=== PATIENT | female | born 1990 | race Caucasian/White ===

== ENCOUNTER 2019-02-21 14:27 | Emergency (ER) | payer MEDICAID ==
--- NOTE | 2019-02-21 14:52 | EDM.PDOC ---
ED HPI GENERAL MEDICAL PROBLEM - General Chief Complaint: Gastrointestinal Problem Stated Complaint: FEVER,CHILLS AND NAUSEA Time Seen by Provider: 02/21/19 14:52 Source of Information: Reports: Patient History Limitations: Reports: No Limitations - History of Present Illness INITIAL COMMENTS - FREE TEXT/NARRATIVE: 28-year-old female presents to the ED with right lower quadrant abdominal pain, fever and chills., Extreme nausea. Reports that she woke around 0500 hrs. this morning to go to the bathroom and as soon as she started to walk she appreciated right lower quadrant abdominal pain. Since that time the pain is increased in intensity and is well localized to McBurney's point. It does not radiate anywhere. It is made worse by laughing walking and appreciated it worse with bumps in the road and driving to the hospital. Is extremely nauseated but has not yet vomited. Patient is being treated currently with a Medrol Dosepak for a bronchitis. Has finished antibiotics recently for bronchitis. Therefore her white blood cell count is likely to be elevated due to steroid effect. She did have some broth soup at noon today which has stayed down. No previous abdominal surgery. She's been 2. [facility] She denies any possibility of . had a vasectomy. Onset: Today Onset Date: 02/21/19 Onset Time: 05:00 Duration: Hour(s): Location: Reports: Abdomen (Right lower quadrant of the abdomen with no radiation.) Quality: Reports: Ache Severity: Moderate (Scribe is a deep ache made worse by coughing laughing or movement. 5 out of 10) Improves with: Reports: Rest Worsens with: Reports: Other, Movement Context: Denies: Activity, Exercise, Lifting, Sick Contact, Trauma, Other Associated Symptoms: Reports: Cough, Loss of Appetite, Malaise, Nausea/Vomiting , Other (She had 2 diarrhea stools yesterday which were waterish and brown. She felt this was secondary to spicy food she had eaten.). 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.) Right Lower Abdomen Pain Score (Numeric/FACES): 8 - Related Data Allergies Allergy/AdvReac Type Severity Reaction Status Date / Time latex Allergy Hives Verified 10/20/15 20:46 miconazole Allergy Swelling Verified 05/06/18 14:08 Penicillins Allergy Cannot Verified 05/06/18 14:08 Remember strawberry Allergy Hives Verified 10/20/15 20:46 Home Meds: Home Meds Ondansetron [Zofran ODT] 4 mg PO Q6H PRN #20 tab.dis 02/04/19 [Rx] Sucralfate [Carafate] 1 gm PO TIDAC PRN 02/21/19 [History] methylPREDNISolone [Methylprednisolone] 4 mg PO ASDIRECTED 02/21/19 [History] traMADol [Ultram] 50 mg PO Q6H PRN #10 tab 02/21/19 [Rx] Past Medical History HEENT History: Reports: Impaired Vision Other HEENT History: Wears glasses Gastrointestinal History: Reports: GERD, PUD Genitourinary History: Reports: Renal Calculus 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 Occasional nonproductive cough. Just finished a course bad about her bronchitis and is currently on Medrol Dosepak for the second time for persistent wheezing.) Cardiovascular: Denies: Chest Pain, Blood Pressure Problem, Claudication, Dyspnea on Exertion, Edema, Lightheadedness, Orthopnea Endocrine: Reports: No Symptoms GI/Abdominal: Reports: Abdominal Pain (Right lower quadrant abdominal pain well localized to McBurney's point.), Diarrhea (She had 2 loose brown watery stools yesterday. She felt this was due to something she had eaten a spicy food.), Nausea. Denies: Vomiting : Reports: No Symptoms Musculoskeletal: Reports: No Symptoms Skin: Reports: No Symptoms Neurological: Reports: No Symptoms Psychiatric: Reports: No Symptoms Hematologic/Lymphatic: Reports: No Symptoms Immunologic: Reports: No Symptoms ED EXAM, GI/ABD - Physical Exam Exam: See Below Exam Limited By: No Limitations General Appearance: Alert, WD/WN, No Apparent Distress, Other (She definitely is warm to palpation.) Eyes: Bilateral: Normal Appearance Throat/Mouth: Normal Inspection, Normal Lips, Normal Teeth, Normal Oropharynx Head: Atraumatic, Normocephalic Neck: Normal Inspection, Supple, Non-Tender, Full Range of Motion. No: Lymphadenopathy (L), Lymphadenopathy (R) Respiratory/Chest: No Respiratory Distress, Lungs Clear, Normal Breath Sounds, No Accessory Muscle Use. No: Wheezing Cardiovascular: Normal Peripheral Pulses, Regular Rate, Rhythm, No Edema, No Gallop, No Murmur, No Rub GI/Abdominal Exam: Guarding (Tender to the right lower quadrant of the abdomen over McBurney's point), Rebound ( mild guardingpositive rebound tenderness ), Tender, Abnormal Bowel Sounds (Very quiet sent bowel sounds in all 4 quadrants.) , Other (Mildly positive Rovsing sign). No: Rigid Back Exam: Normal Inspection, Full Range of Motion. No: CVA Tenderness (L), CVA Tenderness (R) Extremities: Normal Inspection, Normal Range of Motion, Non-Tender Neurological: Alert, Oriented, CN II-XII Intact, Normal Cognition Psychiatric: Normal Affect, Normal Mood Skin Exam: Warm, Dry, Intact, Normal Color, No Rash Course - Vital Signs Last Recorded V/S: Last Vital Signs Temp 36.7 C 02/21/19 14:49 Pulse 83 02/21/19 14:49 Resp 18 02/21/19 14:49 BP 118/81 02/21/19 14:49 Pulse Ox 99 02/21/19 14:49 - Orders/Labs/Meds Orders: Active Orders 24 hr Category Date Time Status Dextrose 5%-0.9% NaCl [Dextrose 5%-Normal Saline] 1,000 Med 02/21/19 15:15 Active ml IV ASDIRECTED Medication Orders Dextrose/Sodium Chloride (Dextrose 5%-Normal Saline) 1,000 mls @ 500 mls/hr IV ASDIRECTED MG Last Admin: 02/21/19 15:21 Dose: 500 mls/hr Labs: Laboratory Tests 02/21/19 02/21/19 02/21/19 Range/Units 15:22 15:22 15:22 WBC 18.19 H (3.98-10.04) K/mm3 RBC 4.45 (3.98-5.22) M/mm3 Hgb 13.5 (11.2-15.7) gm/L Hct 40.7 (34.1-44.9) % MCV 91.5 (79.4-94.8) fl MCH 30.3 (25.6-32.2) pg MCHC 33.2 (32.2-35.5) g/dl RDW Std Deviation 39.6 (36.4-46.3) fL Plt Count 399 H D (182-369) K/mm3 MPV 8.8 L (9.4-12.3) fl Neutrophils % (Manual) 89 H (40-60) % Band Neutrophils % 0 (0-10) % Lymphocytes % (Manual) 9 L (20-40) % Atypical Lymphs % 0 % Monocytes % (Manual) 1 L (2-10) % Eosinophils % (Manual) 0 L (0.7-5.8) % Basophils % (Manual) 1 (0.1-1.2) Platelet Estimate Adequate Plt Morphology Comment Normal RBC Morph Comment Normal Sodium 142 (136-145) mEq/L Potassium 3.9 (3.5-5.1) mEq/L Chloride 105 (98-107) mEq/L Carbon Dioxide 28 (21-32) mEq/L Anion Gap 12.9 (5-15) BUN 13 (7-18) mg/dL Creatinine 0.8 (0.55-1.02) mg/dL Est Cr Clr Drug Dosing 91.21 mL/min Estimated GFR (MDRD) > 60 (>60) mL/min BUN/Creatinine Ratio 16.3 (14-18) Glucose 103 (74-106) mg/dL Calcium 9.1 (8.5-10.1) mg/dL Total Bilirubin 0.4 (0.2-1.0) mg/dL AST 11 L (15-37) U/L ALT 23 (14-59) U/L Alkaline Phosphatase 59 (46-116) U/L C-Reactive Protein < 0.2 (<1.0) mg/dL Total Protein 7.8 (6.4-8.2) g/dl Albumin 4.1 (3.4-5.0) g/dl Globulin 3.7 gm/dL Albumin/Globulin Ratio 1.1 (1-2) Lipase 107 (73-393) U/L HCG, Quant < 1.0 mIU/mL Urine Color (Yellow) Urine Appearance (Clear) Urine pH (5.0-8.0) Ur Specific [place] (1.005-1.030) Urine Protein (Negative) Urine Glucose (UA) (Negative) Urine Ketones (Negative) Urine Occult Blood (Negative) Urine Nitrite (Negative) Urine Bilirubin (Negative) Urine Urobilinogen (0.2-1.0) Ur Leukocyte Esterase (Negative) Urine RBC (0-5) /hpf Urine WBC (0-5) /hpf Ur Squamous Epith Cells (0-5) /hpf Urine Bacteria (FEW) /hpf Urine Mucus (FEW) /hpf 02/21/19 Range/Units 16:25 WBC (3.98-10.04) K/mm3 RBC (3.98-5.22) M/mm3 Hgb (11.2-15.7) gm/L Hct (34.1-44.9) % MCV (79.4-94.8) fl MCH (25.6-32.2) pg MCHC (32.2-35.5) g/dl RDW Std Deviation (36.4-46.3) fL Plt Count (182-369) K/mm3 MPV (9.4-12.3) fl Neutrophils % (Manual) (40-60) % Band Neutrophils % (0-10) % Lymphocytes % (Manual) (20-40) % Atypical Lymphs % % Monocytes % (Manual) (2-10) % Eosinophils % (Manual) (0.7-5.8) % Basophils % (Manual) (0.1-1.2) Platelet Estimate Plt Morphology Comment RBC Morph Comment Sodium (136-145) mEq/L Potassium (3.5-5.1) mEq/L Chloride (98-107) mEq/L Carbon Dioxide (21-32) mEq/L Anion Gap (5-15) BUN (7-18) mg/dL Creatinine (0.55-1.02) mg/dL Est Cr Clr Drug Dosing mL/min Estimated GFR (MDRD) (>60) mL/min BUN/Creatinine Ratio (14-18) Glucose (74-106) mg/dL Calcium (8.5-10.1) mg/dL Total Bilirubin (0.2-1.0) mg/dL AST (15-37) U/L ALT (14-59) U/L Alkaline Phosphatase (46-116) U/L C-Reactive Protein (<1.0) mg/dL Total Protein (6.4-8.2) g/dl Albumin (3.4-5.0) g/dl Globulin gm/dL Albumin/Globulin Ratio (1-2) Lipase (73-393) U/L HCG, Quant mIU/mL Urine Color Yellow (Yellow) Urine Appearance Clear (Clear) Urine pH 6.5 (5.0-8.0) Ur Specific [place] 1.015 (1.005-1.030) Urine Protein Negative (Negative) Urine Glucose (UA) Negative (Negative) Urine Ketones Negative (Negative) Urine Occult Blood Negative (Negative) Urine Nitrite Negative (Negative) Urine Bilirubin Negative (Negative) Urine Urobilinogen 0.2 (0.2-1.0) Ur Leukocyte Esterase Negative (Negative) Urine RBC Not seen (0-5) /hpf Urine WBC 0-5 (0-5) /hpf Ur Squamous Epith Cells 10-20 H (0-5) /hpf Urine Bacteria Few (FEW) /hpf Urine Mucus Not seen (FEW) /hpf Meds: Medications Generic Name Dose Route Start Last Admin Trade Name Freq PRN Reason Stop Dose Admin Dextrose/Sodium Chloride 1,000 mls @ 500 mls/hr 02/21/19 15:15 02/21/19 15:21 Dextrose 5%-Normal Saline IV 500 mls/hr ASDIRECTED MG Administration Discontinued Medications Generic Name Dose Route Start Last Admin Trade Name Freq PRN Reason Stop Dose Admin Diatrizoate Meglum/Diatrizoate Sod 90 ml 02/21/19 15:23 02/21/19 16:36 Gastrografin 37% PO 02/21/19 15:24 90 ml ONETIME ONE Administration Hydromorphone HCl 0.5 mg 02/21/19 15:09 02/21/19 15:23 Dilaudid IVPUSH 02/21/19 15:10 0.5 mg ONETIME ONE Administration Iopamidol 100 ml 02/21/19 15:23 02/21/19 16:36 Isovue-300 (61%) IVPUSH 02/21/19 15:24 100 ml ONETIME ONE Administration Metoclopramide HCl 7.5 mg 02/21/19 15:09 02/21/19 15:22 Reglan IVPUSH 02/21/19 15:10 7.5 mg ONETIME ONE Administration Sodium Chloride 10 ml 02/21/19 15:23 02/21/19 15:24 Saline Flush FLUSH 02/21/19 15:24 10 ml ONETIME ONE Administration - Radiology Interpretation Free Text/Narrative:: 28-year-old female presents to the ED with right lower quadrant abdominal pain that she awoke with around 0500 hrs. this morning. This is predated by 2 loose watery diarrhea stopped real stools yesterday. Today she is appreciated severe nausea without vomiting. She did keep down a little bit of soup broth noon today. Pain is gradually intensifying in the right lower quadrant. It is made worse by movement coughing laughing and riding in a motor vehicle. Examination reveals that she is febrile. She is very tender to touch right lower quadrant of the abdomen with mild guarding and rebound tenderness. Concern is for appendicitis. Patient is currently on a Medrol Dosepak which will elevate her white blood cell count due to steroid effect. Her second course of steroids in the last 3 weeks. She has finished a course of antibiotics as well for bronchitis. Plan IV D5 normal saline at 500 mils per hour. Given Reglan 7.5 mg IV and Dilaudid 0.5 mg IV for pain relief. Routine labs to be obtained including a serum lipase of beta-hCG. The urinalysis when one becomes available. We will proceed with CT of the abdomen with oral and IV contrast to rule out appendicitis. - Re-Assessments/Exams Free Text/Narrative Re-Assessment/Exam: 02/21/19 16:25 White blood cell count is elevated 18.19 with 89% neutrophils no bands cells reported. Of note it may be elevated due to the Medrol Dosepak. Hemoglobin is 13.5 with a hematocrit of 40.7. Bili count is elevated at 399, 000. Sodium 142 with potassium of 3.9. Toward 105 with a bicarbonate 28. And a gap is 12.9. BUN is 13 with a creatinine of 0.8. GFR is greater than 60. Glucose is 103. Calcium is 9.1. Liver function is normal. C-reactive protein is less than 0.2. Lipase is 107. Total protein is 7.8 with an albumin fraction of 4.1. Urinalysis shows only a few epithelial cells but no signs of infection. 02/21/19 16:57 CT of the abdomen and pelvis has been performed with oral and IV contrast. Visualized portions of the lungs appear to be normal. Liver is homogeneous and normal. Gallbladder is normal. Spleen is normal pancreas is normal. Neither adrenal glands appear normal. Both kidneys are within normal limits showing no hydronephrosis or hydroureter. The appendix is visualized and is within normal limits with no steve-appendiceal infiltrate. Bladder is normal. Uterus is enlarged and she does have a right ovarian cyst which is somewhat septated. Several follicles are appreciated in the left ovary. No free fluid is evident. There is increased stool in the cecum and other portions of the colon. 02/21/19 17:26 patient reassured about the findings. Simple cyst in the right ovary which I don't believe is of any consequence. I believe most her pain is coming from stool in the cecum and right hemicolon. Her bowels are likely to work couple times after having oral contrast. I will place her MiraLAX powder 17 g or 1 scoop daily for the next 6 days to ensure bowel cleanse. Tramadol 50 mg 10 tablets were provided for pain relief if needed one every 6 hours when necessary. Follow-up if any further problems occur. Departure - Departure Time of Disposition: 17:18 Disposition: Home, Self-Care 01 Condition: Fair Clinical Impression: Constipation by delayed colonic transit, Right ovarian cyst Abdominal pain Qualifiers: Abdominal location: right lower quadrant Qualified Code(s): R10.31 - Right lower quadrant pain - Discharge Information *PRESCRIPTION DRUG MONITORING PROGRAM REVIEWED*: Not Applicable *COPY OF PRESCRIPTION DRUG MONITORING REPORT IN PATIENT SHANNAN: Not Applicable Prescriptions: traMADol [Ultram] 50 mg PO Q6H PRN #10 tab PRN Reason: Abdominal Pain Referrals: Radha Martinez PA-C [Primary Care Provider] - Forms: ED Department Discharge Additional Instructions: Evaluation the emergent today in regards to development of right lower quadrant abdominal pain since about 0500 hrs. this morning. Clinically also appear to have a low-grade fever.Ill recently with upper respiratory tract infection/ bronchitis. currently on second course of Medrol Dosepak. Pain was well localized to McBurney's point to right lower quadrant where the appendix lives. Therefore working diagnosis was possible appendicitis. However CT of the abdomen completed with IV and oral contrast reveals a normal-looking appendix was no sign of inflammation around it. The cecum or the lower part of the right colon is stool-filled almost up to the liver on the right side compatible with mild constipation. This may be acting as a stool plug and causing current pain syndrome. There is also a simple right-sided ovarian cyst which should resolve on its own over the next 6 weeks or so. It has not ruptured and has no blood within the cyst. No other abnormalities were appreciated on CT of the abdomen and pelvis. The bowels are likely going to move once or twice tonight secondary to the oral contrast you drank in the ED in preparation for the CT exam. I would suggest taking MiraLAX powder 17 g or 1 scoop daily for the next 6 days or so to ensure that the constipation is relieved completely. This I believe will relieve your abdominal pain. May use tramadol 50 mg every 6 hours as necessary for pain relief. Integument Medrol Dosepak as previously prescribed. Her inhaler as needed. - My Orders Last 24 Hours: My Active Orders 02/21/19 15:15 Dextrose 5%-0.9% NaCl [Dextrose 5%-Normal Saline] 1,000 ml IV ASDIRECTED - Assessment/Plan Last 24 Hours: My Active Orders 02/21/19 15:15 Dextrose 5%-0.9% NaCl [Dextrose 5%-Normal Saline] 1,000 ml IV ASDIRECTED
[2019-02-21 14:54] VITALS: BP 118/81
[2019-02-21] MEDS ORDERED: HYDROmorphone 0.5 MG/0.5 ML Syringe IVPUSH ONE (15:09)
[2019-02-21] MEDS ORDERED: Metoclopramide 10 MG/2 ML SDV IVPUSH ONE (15:09)
[2019-02-21] MEDS ORDERED: Dextrose 5%-0.9% NaCl 1,000 ML IV SCH (15:15)
[2019-02-21] MEDS ORDERED: Iopamidol 612 MG/ML 100 ML Bottle IVPUSH ONE (15:23)
[2019-02-21] MEDS ORDERED: Sodium Chloride 0.9% 10 ML Syringe FLUSH ONE (15:23)
[2019-02-21] MEDS ORDERED: Diatrizoate Meglumine/Diatrizoate Sodium 37% 120 ML Bottle PO ONE (15:23)
--- NOTE | 2019-02-21 17:00 | CT ---
CT abdomen and pelvis Technique: Multiple axial sections were obtained from slightly below the top the liver inferiorly through the pubic symphysis. Intravenous and oral contrast was utilized. Delayed images were also obtained through the bladder. Findings: Visualized lung bases show nothing acute. Liver contains no focal abnormality. Spleen appears within normal limits. Adrenal glands show no nodule. Pancreas is within normal limits. Gallbladder contains no calcified gallstones. Kidneys show symmetric contrast enhancement without hydronephrosis or mass. Aorta shows no aneurysm. No retroperitoneal adenopathy or mesenteric abnormalities are seen. Appendix is seen which is normal in size. No pelvic mass or adenopathy is seen. Delayed images shows contrast within the distal ureters and within the bladder. No free fluid or inflammatory change is appreciated within the abdomen or pelvis. Bone window settings were reviewed which appear within normal limits for the patient's age. Mild increased stool is noted throughout the colon. Impression: 1. Mild amount of increased stool within the colon. 2. CT study of the abdomen and pelvis otherwise appears within normal limits for the patient's age. Nothing acute is appreciated. Diagnostic code #2
== END 2019-02-21 17:50 | disposition home or self-care (01) ==
LOC: JD.ED 14:27
DX: K59.01 Slow transit constipation (principal); N83.201 Unspecified ovarian cyst, right side; Z91.040 Latex allergy status; Z88.0 Allergy status to penicillin; Z91.018 Allergy to other foods; Z88.8 Allergy status to other drugs, medicaments and biological substances
CPT/HCPCS: 36415; 74177; 80053; 81001; 83690; 84702; 85007; 85027; 86140; 96361; 96374; 96375; 99284; J1170; J2765; J7042; Q9963; Q9967

== ENCOUNTER 2019-10-27 15:13 | Inpatient (IN) | payer MEDICAID ==
[~2019-10-27 15:13] MED LIST: Bupivacaine 0.25% 10 ML SDV ONE
[2019-10-27] MEDS ORDERED: Sodium Chloride 0.9% 10 ML Syringe FLUSH PRN (16:58)
[2019-10-27] MEDS ORDERED: Nalbuphine 10 MG/ML Syringe IVPUSH PRN (16:58)
[2019-10-27] MEDS ORDERED: Ondansetron 4 MG/2 ML SDV IVPUSH PRN ×2 (16:58→17:03)
[2019-10-27] MEDS ORDERED: Oxytocin/Lactated Ringers 10 UNIT/1,000 ML BAG IV SCH ×2 (17:00→21:00)
[2019-10-27] MEDS ORDERED: ePHEDrine 50 MG/ML SDV IVPUSH PRN (17:03)
[2019-10-27] MEDS ORDERED: fentaNYL 100 MCG/2 ML SDV EPIDUR PRN (17:03)
--- NOTE | 2019-10-27 17:05 | PCM.LDHP ---
L&D History of Present Illness - General Date of Service: 10/27/19 Admit Problem/Dx: Patient Status Order with Admit Dx/Problem 10/27/19 16:02 Patient Status [ADT] Routine Admission Diagnosis/Problem Admission Diagnosis/Problem Source of Information: Patient History Limitations: Reports: No Limitations - History of Present Illness Introduction:: Patient is a 29 y/o at 38 1/7 wks who presents in early labor. Contractions on and off since 11 this AM. Not terribly uncomfortable. Doing well otherwise - Related Data Allergies/Adverse Reactions: Allergies Allergy/AdvReac Type Severity Reaction Status Date / Time latex Allergy Mild Hives Verified 10/27/19 16:01 miconazole Allergy Mild Hives Verified 10/27/19 16:01 Penicillins Allergy Mild Hives Verified 10/27/19 16:01 strawberry Allergy Mild Hives Verified 10/27/19 16:01 Home Medications: Home Meds No122/Iron/Folic Acid [ Multi Tablet] 1 each PO DAILY 08/29/19 [History] Past Medical History HEENT History: Reports: Impaired Vision Other HEENT History: Wears glasses Gastrointestinal History: Reports: GERD, PUD Genitourinary History: Reports: Renal Calculus 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): - Past Surgical History HEENT Surgical History: Reports: Oral Surgery GI Surgical History: Reports: Colonoscopy, EGD Social & Family History - Family History Family Medical History: Noncontributory - Tobacco Use Smoking Status *Q: Never Smoker - Caffeine Use Caffeine Use: Reports: Coffee - Alcohol Use Alcohol Use History: No - Recreational Drug Use Recreational Drug Use: No - Living Situation & Occupation Living situation: Reports: Single H&P Review of Systems - Review of Systems: Review Of Systems: See Below General: Reports: No Symptoms Pulmonary: Reports: No Symptoms Cardiovascular: Reports: No Symptoms Gastrointestinal: Reports: No Symptoms Genitourinary: Reports: No Symptoms Musculoskeletal: Reports: No Symptoms Skin: Reports: No Symptoms Psychiatric: Reports: No Symptoms Neurological: Reports: No Symptoms L&D Exam - Exam Exam: See Below - Vital Signs Vital Signs: Last Vital Signs Temp 37.1 C 10/27/19 15:27 Pulse 95 10/27/19 15:27 Resp 14 10/27/19 15:27 BP 124/72 10/27/19 15:27 Pulse Ox 100 10/27/19 15:27 Weight: 78.109 kg - OB Specific Contraction Intensity: Moderate Movement: Active Heart Tones: Present Heart Tones per Min: 135 Heart Rate (FHR) Variability: Moderate (6-25 bmp) Presentation: Vertex - Barron Score Barron Score Cervix Position: Midposition Barron Score Consistency: Soft Barron Score Effacement: >80% Barron Score Dilation: 3-4 cm (4-5) Barron Score Infant's Station: -2 Barron Score Total: 9 - Exam General: Alert, Oriented, Cooperative Lungs: Clear to Auscultation, Normal Respiratory Effort Cardiovascular: Regular Rate, Regular Rhythm GI/Abdominal Exam: Soft, Non-Tender Genitourinary: Normal external exam Extremities: Normal Inspection Skin: Warm, Dry, Intact - Problem List (1) 38 weeks gestation of SNOMED Code(s): 08968697 ICD Code: Z3A.38 - 38 WEEKS GESTATION OF Status: Acute Current Visit: Yes (2) Normal labor SNOMED Code(s): 59063260 ICD Code: O80 - ENCOUNTER FOR FULL-TERM UNCOMPLICATED DELIVERY; Z37.9 - OUTCOME OF DELIVERY, UNSPECIFIED Status: Acute Current Visit: No Problem List Initiated/Reviewed/Updated: Yes Orders Last 24hrs: Active Orders 24 hr Category Date Time Status Patient Status [ADT] Routine ADT 10/27/19 16:02 Active Activity as Tolerated [RC] PFP Care 10/27/19 16:58 Ordered Communication Order [RC] ASDIRECTED Care 10/27/19 16:58 Ordered Heart Tones [RC] ASDIRECTED Care 10/27/19 16:58 Ordered Non Stress Test [RC] PER UNIT ROUTINE Care 10/27/19 16:02 Active Non Stress Test [RC] PER UNIT ROUTINE Care 10/27/19 16:58 Ordered Notify Provider [RC] PFP Care 10/27/19 16:58 Ordered Notify Provider [RC] PRN Care 10/27/19 16:58 Ordered Peripheral IV Care [RC] . DIRECTED Care 10/27/19 16:58 Ordered Vital Signs [RC] PER UNIT ROUTINE Care 10/27/19 16:02 Active Vital Signs [RC] PER UNIT ROUTINE Care 10/27/19 16:58 Ordered Regular Diet [DIET] Diet 10/27/19 Dinner Ordered CBC W/O DIFF,HEMOGRAM [HEME] Stat Lab 10/27/19 16:58 Ordered RAPID PLASMA REAGIN,RPR [CHEM] Routine Lab 10/27/19 16:58 Ordered TYPE AND SCREEN [BBK] Stat Lab 10/27/19 16:58 Ordered Lactated Ringers [Ringers, Lactated] 1,000 ml Med 10/27/19 17:00 Ordered IV ASDIRECTED Nalbuphine [Nubain] Med 10/27/19 16:58 Ordered 10 mg IVPUSH Q2H PRN Ondansetron [Zofran] Med 10/27/19 16:58 Ordered 4 mg IVPUSH Q4H PRN Oxytocin/Lactated Ringers [Pitocin in LR 10 Units/1,000 Med 10/27/19 17:00 Ordered ML] 10 unit in 1,000 ml IV .CONTINUOUS Sodium Chloride 0.9% [Saline Flush] Med 10/27/19 16:58 Ordered 10 ml FLUSH ASDIRECTED PRN Electronic Heart Tones Ext w TOCO [WOMSER] Oth 10/27/19 16:58 Ordered Routine Electronic Heart Tones Internal [WOMSER] Per Unit Oth 10/27/19 16:58 Ordered Routine Peripheral IV Insertion Adult [OM.PC] Routine Oth 10/27/19 16:58 Ordered Resuscitation Status Routine Resus Stat 10/27/19 16:02 Ordered Medication Orders Lactated Ringer's (Ringers, Lactated) 1,000 mls @ 100 mls/hr IV ASDIRECTED MG Oxytocin/Lactated Ringer's (Pitocin In Lr 10 Units/1,000 Ml) 10 unit in 1,000 mls @ 500 mls/hr IV .CONTINUOUS MG Nalbuphine HCl (Nubain) 10 mg IVPUSH Q2H PRN PRN Reason: Pain Ondansetron HCl (Zofran) 4 mg IVPUSH Q4H PRN PRN Reason: Nausea/Vomiting Sodium Chloride (Saline Flush) 10 ml FLUSH ASDIRECTED PRN PRN Reason: Keep Vein Open Assessment/Plan Comment:: * Made change from 4 cm to 4-5 and more effaced * Labs to be done * GBS negative * Pain management per patient preference * Anticipate
[2019-10-27] MEDS ORDERED: Bupivacaine/fentaNYL/NS 100 ML Bag EPIDUR SCH (17:15)
--- NOTE | 2019-10-27 17:17 | PCM.PREANE ---
Preanesthetic Assessment - Procedure Proposed Procedure: SARAH - Anesthesia/Transfusion/Family Hx Anesthesia History: Prior Anesthesia Without Reaction Family History of Anesthesia Reaction: No Transfusion History: No Prior Transfusion(s) Intubation History: Unknown - Review of Systems General: No Symptoms Pulmonary: No Symptoms Cardiovascular: No Symptoms Gastrointestinal: No Symptoms, Constipation Neurological: No Symptoms Other: Reports: None - Physical Assessment NPO Status Date: 10/27/19 NPO Status Time: 12:00 Vital Signs: Last Vital Signs Temp 37.1 C 10/27/19 15:27 Pulse 95 10/27/19 15:27 Resp 14 10/27/19 15:27 BP 124/72 10/27/19 15:27 Pulse Ox 100 10/27/19 15:27 Height: 1.63 m Weight: 78.109 kg ASA Class: 2 Mental Status: Alert & Oriented x3 Airway Class: Mallampati = 2 Dentition: Reports: Normal Dentition, Caries Thyro-Mental Finger Breadths: 3 Mouth Opening Finger Breadths: 3 ROM/Head Extension: Full Lungs: Clear to Auscultation, Normal Respiratory Effort Cardiovascular: Regular Rate, Regular Rhythm, No Murmurs - Lab Values: Awaiting labs, will review when available, and if within acceptable ranges plan to proceed with epidural. - Allergies Allergies/Adverse Reactions: Allergies Allergy/AdvReac Type Severity Reaction Status Date / Time latex Allergy Mild Hives Verified 10/27/19 16:01 miconazole Allergy Mild Hives Verified 10/27/19 16:01 Penicillins Allergy Mild Hives Verified 10/27/19 16:01 strawberry Allergy Mild Hives Verified 10/27/19 16:01 - Anesthesia Plan Pre-Op Medication Ordered: None - Acknowledgements Anesthesia Type Planned: Epidural Pt an Appropriate Candidate for the Planned Anesthesia: Yes Alternatives and Risks of Anesthesia Discussed w Pt/Guardian: Yes Pt/Guardian Understands and Agrees with Anesthesia Plan: Yes PreAnesthesia Questionnaire HEENT History: Reports: Impaired Vision Other HEENT History: Wears glasses Gastrointestinal History: Reports: GERD, PUD Genitourinary History: Reports: Renal Calculus DYNAMICS AX SOLUTION ARCHITECT History: Reports: - Past Surgical History HEENT Surgical History: Reports: Oral Surgery GI Surgical History: Reports: Colonoscopy, EGD - SUBSTANCE USE Smoking Status *Q: Never Smoker Recreational Drug Use History: No - HOME MEDS Home Medications: Home Meds No122/Iron/Folic Acid [ Multi Tablet] 1 each PO DAILY 08/29/19 [History] - CURRENT (IN HOUSE) MEDS Current Meds: Current Medications Ephedrine Sulfate (Ephedrine Sulfate) 5 mg IVPUSH ASDIRECTED PRN PRN Reason: Hypotension Fentanyl (Sublimaze) 100 mcg EPIDUR Q3H PRN PRN Reason: Pain Fentanyl/Bupivacaine HCl (Fentanyl/Bupivacaine/Ns 2 Mcg-0.125% 100 Ml) 100 ml EPIDUR ASDIRECTED MG Lactated Ringer's (Ringers, Lactated) 1,000 mls @ 100 mls/hr IV ASDIRECTED MG Oxytocin/Lactated Ringer's (Pitocin In Lr 10 Units/1,000 Ml) 10 unit in 1,000 mls @ 500 mls/hr IV .CONTINUOUS MG Nalbuphine HCl (Nubain) 10 mg IVPUSH Q2H PRN PRN Reason: Pain Ondansetron HCl (Zofran) 4 mg IVPUSH Q4H PRN PRN Reason: Nausea/Vomiting Ondansetron HCl (Zofran) 4 mg IVPUSH ONETIME PRN PRN Reason: Nausea/Vomiting Sodium Chloride (Saline Flush) 10 ml FLUSH ASDIRECTED PRN PRN Reason: Keep Vein Open
[2019-10-27] MEDS: Lactated Ringers 1,000 ML IV SCH ×3 (17:46→20:14)
--- NOTE | 2019-10-27 18:42 | PCM.PNLD ---
Labor Progress Note - VS & Meds Vital Signs: Last Vital Signs Temp 37.1 C 10/27/19 16:02 Pulse 94 10/27/19 18:00 Resp 14 10/27/19 15:27 BP 122/67 10/27/19 18:00 Pulse Ox 100 10/27/19 17:30 Active Medications: Current Medications Ephedrine Sulfate (Ephedrine Sulfate) 5 mg IVPUSH ASDIRECTED PRN PRN Reason: Hypotension Fentanyl (Sublimaze) 100 mcg EPIDUR Q3H PRN PRN Reason: Pain Last Admin: 10/27/19 17:45 Dose: 100 mcg Fentanyl/Bupivacaine HCl (Fentanyl/Bupivacaine/Ns 2 Mcg-0.125% 100 Ml) 100 ml EPIDUR ASDIRECTED MG Last Admin: 10/27/19 17:45 Dose: 100 ml Lactated Ringer's (Ringers, Lactated) 1,000 mls @ 100 mls/hr IV ASDIRECTED MG Last Admin: 10/27/19 18:16 Dose: 100 mls/hr Oxytocin/Lactated Ringer's (Pitocin In Lr 10 Units/1,000 Ml) 10 unit in 1,000 mls @ 500 mls/hr IV .CONTINUOUS MG Nalbuphine HCl (Nubain) 10 mg IVPUSH Q2H PRN PRN Reason: Pain Ondansetron HCl (Zofran) 4 mg IVPUSH Q4H PRN PRN Reason: Nausea/Vomiting Ondansetron HCl (Zofran) 4 mg IVPUSH ONETIME PRN PRN Reason: Nausea/Vomiting Sodium Chloride (Saline Flush) 10 ml FLUSH ASDIRECTED PRN PRN Reason: Keep Vein Open - Uterine Contractions Uterine Monitoring Mode: External Cruger Contraction Intensity: Moderate - Monitoring Monitor Mode: External Ultrasound Heart Rate (FHR) Baseline: 120 Heart Rate (FHR) Variability: Moderate (6-25 bmp) Accelerations: Present, 15x15 Decelerations: None Strip Review: Category I - Vaginal Exam Dilation (cm): 6 Effacement (Percent): 75 Station: -1 Cervical Position: Midposition - Labor Progress (Free Text) Labor Progress: Doing well. Comfortable with epidural. AROM performed with release of clear fluid. Continue present management
--- NOTE | 2019-10-27 22:03 | PCM.DEL ---
L & D Note - General Info Date of Service: 10/27/19 - Delivery Note Labor: Augmented by ARM Delivery Outcome: Livebirth Delivery Method: Spontaneous Vaginal Delivery-Single Infant Delivery Mode: Spontaneous Presentation: Left Occiput Anterior (BRUNILDA) Nuchal Cord: None Anesthesia Type: Epidural Amniotic Fluid Description: Clear Episiotomy Type: None Laceration: None Placenta: Intact, Spontaneous Cord: 3 Vessels Estimated Blood Loss: 100 : Bulb Syringe, Stimulated, Warmed, [place] Used, Warmer Used Delivery Comments (Free Text/Narrative):: Patient found to be complete and began pushing. With maternal pushing effort head delivered from an MARGARITA presentation. No nuchal cord present. With gentle downward traction the shoulders and body delivered. placed on maternal abdomen. Cord clamped and cut. Cord blood obtained. Placenta allowed time to separate and expelled intact. Inspection of perineum showed no lacerations - General Info Date of Service: 10/27/19 - Patient Data Vitals - Most Recent: Last Vital Signs Temp 37.1 C 10/27/19 16:02 Pulse 94 10/27/19 18:00 Resp 14 10/27/19 15:27 BP 122/67 10/27/19 18:00 Pulse Ox 100 10/27/19 17:30 Weight - Most Recent: 78.109 kg Lab Results Last 24 Hours: Laboratory Results - last 24 hr 10/27/19 10/27/19 Range/Units 17:10 17:10 WBC 10.87 H (3.98-10.04) K/mm3 RBC 4.10 (3.98-5.22) M/mm3 Hgb 11.7 (11.2-15.7) gm/dl Hct 36.7 (34.1-44.9) % MCV 89.5 (79.4-94.8) fl MCH 28.5 (25.6-32.2) pg MCHC 31.9 L (32.2-35.5) g/dl RDW Std Deviation 41.3 (36.4-46.3) fL Plt Count 428 H (182-369) K/mm3 MPV 9.3 L (9.4-12.3) fl Blood Type A POSITIVE Gel Antibody Screen Negative Med Orders - Current: Current Medications Ephedrine Sulfate (Ephedrine Sulfate) 5 mg IVPUSH ASDIRECTED PRN PRN Reason: Hypotension Fentanyl (Sublimaze) 100 mcg EPIDUR Q3H PRN PRN Reason: Pain Last Admin: 10/27/19 17:45 Dose: 100 mcg Fentanyl/Bupivacaine HCl (Fentanyl/Bupivacaine/Ns 2 Mcg-0.125% 100 Ml) 100 ml EPIDUR ASDIRECTED MG Last Admin: 10/27/19 17:45 Dose: 100 ml Lactated Ringer's (Ringers, Lactated) 1,000 mls @ 100 mls/hr IV ASDIRECTED MG Last Admin: 10/27/19 20:14 Dose: 100 mls/hr Oxytocin/Lactated Ringer's (Pitocin In Lr 10 Units/1,000 Ml) 10 unit in 1,000 mls @ 500 mls/hr IV .CONTINUOUS MG Oxytocin/Lactated Ringer's (Pitocin In Lr 10 Units/1,000 Ml) 10 unit in 1,000 mls @ 12 mls/hr IV TITRATE MG; Protocol Last Titration: 10/27/19 21:27 Dose: 0 munits/min, 0 mls/hr Nalbuphine HCl (Nubain) 10 mg IVPUSH Q2H PRN PRN Reason: Pain Ondansetron HCl (Zofran) 4 mg IVPUSH Q4H PRN PRN Reason: Nausea/Vomiting Last Admin: 10/27/19 19:49 Dose: 4 mg Ondansetron HCl (Zofran) 4 mg IVPUSH ONETIME PRN PRN Reason: Nausea/Vomiting Sodium Chloride (Saline Flush) 10 ml FLUSH ASDIRECTED PRN PRN Reason: Keep Vein Open - Problem List & Annotations (1) 38 weeks gestation of SNOMED Code(s): 26538706 Code(s): Z3A.38 - 38 WEEKS GESTATION OF Status: Acute Current Visit: Yes (2) Normal labor SNOMED Code(s): 19523229 Code(s): O80 - ENCOUNTER FOR FULL-TERM UNCOMPLICATED DELIVERY; Z37.9 - OUTCOME OF DELIVERY, UNSPECIFIED Status: Acute Current Visit: No (3) Vaginal delivery SNOMED Code(s): 919026393 Code(s): O80 - ENCOUNTER FOR FULL-TERM UNCOMPLICATED DELIVERY Status: Acute Current Visit: No - Problem List Review Problem List Initiated/Reviewed/Updated: Yes - My Orders Last 24 Hours: My Active Orders 10/27/19 16:02 Vital Signs [RC] PER UNIT ROUTINE Resuscitation Status Routine 10/27/19 16:58 Activity as Tolerated [RC] PFP Communication Order [RC] ASDIRECTED Notify Provider [RC] PFP Notify Provider [RC] PRN Peripheral IV Care [RC] Q2HR Nalbuphine [Nubain] 10 mg IVPUSH Q2H PRN Ondansetron [Zofran] 4 mg IVPUSH Q4H PRN Sodium Chloride 0.9% [Saline Flush] 10 ml FLUSH ASDIRECTED PRN Electronic Heart Tones Ext w TOCO [WOMSER] Routine Electronic Heart Tones Internal [WOMSER] Per Unit Routine Peripheral IV Insertion Adult [OM.PC] Routine 10/27/19 17:00 Admission Status [Patient Status] [ADT] Routine Lactated Ringers [Ringers, Lactated] 1,000 ml IV ASDIRECTED Oxytocin/Lactated Ringers [Pitocin in LR 10 Units/1,000 ML] 10 unit in 1,000 ml IV .CONTINUOUS 10/27/19 17:10 RAPID PLASMA REAGIN,RPR [CHEM] Routine 10/27/19 21:00 Oxytocin/Lactated Ringers [Pitocin in LR 10 Units/1,000 ML] 10 unit in 1,000 ml IV TITRATE 10/27/19 Dinner Regular Diet [DIET] - Assessment Assessment:: PPD#0 - Plan Plan:: * Routine cares * Breast feeding * Discharge in 1-2 days
[2019-10-27] MEDS ORDERED: Docusate Sodium 100 MG Cap PO PRN (22:18)
[2019-10-27] MEDS ORDERED: Benzocaine/Menthol 20%-0.5% Spray 56 GM Canister TOP PRN (22:18)
[2019-10-27] MEDS ORDERED: Witch Hazel Medicated Pads 40/Jar TOP PRN (22:18)
[2019-10-27] MEDS: Ibuprofen 600 MG Tab PO PRN (22:31)
[2019-10-27] MEDS: Acetaminophen 325 MG Tab PO PRN (22:53)
--- NOTE | 2019-10-27 23:50 | PCM.SN.2 ---
- Free Text/Narrative Note: Anesthesia Note: Time Out: 0003 Start: 0010 Stop: 0025 Anesthesia called for patient c/o positional headache post delivery and post epidural catheter discontinuation. Upon assessment via anesthesia, patient continues to c/o positional headache when sitting high hilton's and with ambulation. Chart/Allergies reviewed. Consent signed for Autologous Blood Patch. Patient sat up for procedure. Sterile technique noted. Back cleansed with three betadine swabs. 17 gauge tuohy placed L3-L4 with TEMO noted via air @ 4cm. 20ml's of autologous blood injected via tuohy needle. Tuohy needle removed, bandaid placed, and patient instructed to lay flat for the remainder of the night. Procedure tolerated well by patient. Thank you! Vandana Puente CRNA
[2019-10-28] MEDS ORDERED: Lactated Ringers 1,000 ML IV SCH (00:45)
[2019-10-28] MEDS: Ibuprofen 600 MG Tab PO PRN ×3 (05:00→19:05)
--- NOTE | 2019-10-28 07:06 | PCM.PNPP ---
- General Info Date of Service: 10/28/19 Functional Status: Reports: Pain Controlled, Tolerating Diet, Ambulating, Urinating - Review of Systems General: Reports: No Symptoms Pulmonary: Reports: No Symptoms Cardiovascular: Reports: No Symptoms Gastrointestinal: Reports: No Symptoms Genitourinary: Reports: No Symptoms Musculoskeletal: Reports: No Symptoms Neurological: Reports: No Symptoms Psychiatric: Reports: No Symptoms - Patient Data Vital Signs - Most Recent: Last Vital Signs Temp 37.0 C 10/28/19 04:29 Pulse 81 10/28/19 04:29 Resp 15 10/28/19 04:29 BP 114/80 10/28/19 04:29 Pulse Ox 97 10/28/19 04:29 Weight - Most Recent: 78.109 kg I&O - Last 24 Hours: Intake & Output 10/27/19 10/28/19 10/28/19 22:59 06:59 14:59 Intake Total 5000 Balance 5000 Lab Results - Last 24 Hours: Laboratory Results - last 24 hr 10/27/19 10/27/19 10/27/19 Range/Units 17:10 17:10 17:10 WBC 10.87 H (3.98-10.04) K/mm3 RBC 4.10 (3.98-5.22) M/mm3 Hgb 11.7 (11.2-15.7) gm/dl Hct 36.7 (34.1-44.9) % MCV 89.5 (79.4-94.8) fl MCH 28.5 (25.6-32.2) pg MCHC 31.9 L (32.2-35.5) g/dl RDW Std Deviation 41.3 (36.4-46.3) fL Plt Count 428 H (182-369) K/mm3 MPV 9.3 L (9.4-12.3) fl RPR Non-reactive (NONREACTIVE) Blood Type A POSITIVE Gel Antibody Screen Negative Med Orders - Current: Current Medications Acetaminophen (Tylenol) 650 mg PO Q4H PRN PRN Reason: mild pain or fever Last Admin: 10/27/19 22:53 Dose: 650 mg Benzocaine/Menthol (Dermoplast Pain Relief [place]) 0 gm TOP ASDIRECTED PRN PRN Reason: Perineal Comfort Measure Docusate Sodium (Colace) 100 mg PO BID PRN PRN Reason: Constipation Lactated Ringer's (Ringers, Lactated) 1,000 mls @ 150 mls/hr IV ASDIRECTED MG Last Admin: 10/28/19 01:00 Dose: 150 mls/hr Ibuprofen (Motrin) 600 mg PO Q6H PRN PRN Reason: Mild pain or fever Last Admin: 10/28/19 05:00 Dose: 600 mg Witch [place] (Tucks) 1 pad TOP ASDIRECTED PRN PRN Reason: Pain Discontinued Medications Ephedrine Sulfate (Ephedrine Sulfate) 5 mg IVPUSH ASDIRECTED PRN PRN Reason: Hypotension Fentanyl (Sublimaze) 100 mcg EPIDUR Q3H PRN PRN Reason: Pain Last Admin: 10/27/19 17:45 Dose: 100 mcg Fentanyl/Bupivacaine HCl (Fentanyl/Bupivacaine/Ns 2 Mcg-0.125% 100 Ml) 100 ml EPIDUR ASDIRECTED MG Last Admin: 10/27/19 17:45 Dose: 100 ml Lactated Ringer's (Ringers, Lactated) 1,000 mls @ 100 mls/hr IV ASDIRECTED MG Last Admin: 10/27/19 20:14 Dose: 100 mls/hr Oxytocin/Lactated Ringer's (Pitocin In Lr 10 Units/1,000 Ml) 10 unit in 1,000 mls @ 500 mls/hr IV .CONTINUOUS MG Oxytocin/Lactated Ringer's (Pitocin In Lr 10 Units/1,000 Ml) 10 unit in 1,000 mls @ 12 mls/hr IV TITRATE MG; Protocol Last Titration: 10/27/19 22:55 Dose: 250 mls/hr Nalbuphine HCl (Nubain) 10 mg IVPUSH Q2H PRN PRN Reason: Pain Ondansetron HCl (Zofran) 4 mg IVPUSH Q4H PRN PRN Reason: Nausea/Vomiting Last Admin: 10/27/19 19:49 Dose: 4 mg Ondansetron HCl (Zofran) 4 mg IVPUSH ONETIME PRN PRN Reason: Nausea/Vomiting Sodium Chloride (Saline Flush) 10 ml FLUSH ASDIRECTED PRN PRN Reason: Keep Vein Open - Interaction Disposition, : [place] in Room with Family Infant Interaction: Holding Infant Feeding: Breastfed Infant; Nursed Well Support Person: - Recovery Exam Fundal Tone: Firm Fundal Level: At Umbilicus Fundal Placement: Midline Lochia Amount: Small Lochia Color: Rubra/Red Perineum Description: Intact, Minimal Bruising/Swelling Episiotomy/Laceration: None Bladder Status: Nonpalpable, Voiding Urinary Elimination: Voided - Exam General: Alert, Oriented, Cooperative GI/Abdominal Exam: Soft, Non-Tender Extremities: Normal Inspection Skin: Warm, Dry, Intact - Problem List & Annotations (1) 38 weeks gestation of SNOMED Code(s): 75154816 Code(s): Z3A.38 - 38 WEEKS GESTATION OF Status: Acute Current Visit: Yes (2) Normal labor SNOMED Code(s): 92689441 Code(s): O80 - ENCOUNTER FOR FULL-TERM UNCOMPLICATED DELIVERY; Z37.9 - OUTCOME OF DELIVERY, UNSPECIFIED Status: Acute Current Visit: No (3) Vaginal delivery SNOMED Code(s): 459862193 Code(s): O80 - ENCOUNTER FOR FULL-TERM UNCOMPLICATED DELIVERY Status: Acute Current Visit: No - Problem List Review Problem List Initiated/Reviewed/Updated: Yes - My Orders Last 24 Hours: My Active Orders 10/27/19 16:02 Resuscitation Status Routine 10/27/19 22:18 Activity as Tolerated [RC] PER UNIT ROUTINE Vital Signs [RC] 09,15,21,03 Acetaminophen [Tylenol] 650 mg PO Q4H PRN Benzocaine/Menthol [Dermoplast Pain Relief [place]] See Dose Instructions TOP ASDIRECTED PRN Docusate Sodium [Colace] 100 mg PO BID PRN Ibuprofen [Motrin] 600 mg PO Q6H PRN witch Sapphire [Tucks] 1 pad TOP ASDIRECTED PRN Assess Lochia [WOMSER] Per Unit Routine Assess Uterine Involution [WOMSER] Per Unit Routine Breast Pump [WOMSER] Per Unit Routine Heat Therapy [OM.PC] PRN Ice Therapy [OM.PC] Per Unit Routine Perineal Care [OM.PC] Per Unit Routine Peripheral IV Discontinue [OM.PC] Routine Sitz Bath [OM.PC] Per Unit Routine 10/27/19 Breakfast Regular Diet [DIET] 10/28/19 22:18 Heat Therapy [OM.PC] PRN - Assessment Assessment:: PPD#1 - Plan Plan:: * Routine cares * Breast feeding * Discharge today
--- NOTE | 2019-10-28 07:08 | PCM.DCSUM1 ---
Discharge Summary - Discharge Data Discharge Date: 10/28/19 Discharge Disposition: Home, Self-Care 01 Condition: Good - Referral to Home Health Primary Care Physician: Saskia Olson MD - Discharge Diagnosis/Problem(s) (1) 38 weeks gestation of SNOMED Code(s): 63283332 ICD Code: Z3A.38 - 38 WEEKS GESTATION OF Status: Acute Current Visit: Yes (2) Normal labor SNOMED Code(s): 65816233 ICD Code: O80 - ENCOUNTER FOR FULL-TERM UNCOMPLICATED DELIVERY; Z37.9 - OUTCOME OF DELIVERY, UNSPECIFIED Status: Acute Current Visit: No (3) Vaginal delivery SNOMED Code(s): 579483642 ICD Code: O80 - ENCOUNTER FOR FULL-TERM UNCOMPLICATED DELIVERY Status: Acute Current Visit: No - Patient Summary/Data Complications: None Consults: None Recommended Follow-up Testing/Procedures: Follow up in 3 weeks for check - can be telehealth Hospital Course: Patient is a29 y/o at 38 1/7 wks who presented in early labor. Progressed well to complete dilation. Underwent uncomplicated . See delivery note. did well and was discharged home on PPD#1 - Patient Instructions Diet: Regular Diet as Tolerated Activity: As Tolerated Activity, Other: Pelvic Rest for 6 weeks Driving: May Drive Today Showering/Bathing: May Shower Showering/Bathing, Other: May bathe Notify Provider of: Fever, Increased Pain, Swelling and Redness, Drainage, Nausea and/or Vomiting - Discharge Plan *PRESCRIPTION DRUG MONITORING PROGRAM REVIEWED*: No *COPY OF PRESCRIPTION DRUG MONITORING REPORT IN PATIENT SHANNAN: No Home Medications: Home Meds No122/Iron/Folic Acid [ Multi Tablet] 1 each PO DAILY 08/29/19 [History] Docusate Sodium [Colace] 100 mg PO BID PRN cap 10/28/19 [Rx] Ibuprofen [Motrin] 600 mg PO Q6H PRN tablet 10/28/19 [Rx] Referrals: Saskia Olson MD [Primary Care Provider] - (3 weeks for check - can be telehealth ) - Discharge Summary/Plan Comment DC Time >30 min.: No - Patient Data Vitals - Most Recent: Last Vital Signs Temp 37.0 C 10/28/19 04:29 Pulse 81 10/28/19 04:29 Resp 15 10/28/19 04:29 BP 114/80 10/28/19 04:29 Pulse Ox 97 10/28/19 04:29 Weight - Most Recent: 78.109 kg I&O - Last 24 hours: Intake & Output 10/27/19 10/28/19 10/28/19 22:59 06:59 14:59 Intake Total 5000 Balance 5000 Lab Results - Last 24 hrs: Laboratory Results - last 24 hr 10/27/19 10/27/19 10/27/19 Range/Units 17:10 17:10 17:10 WBC 10.87 H (3.98-10.04) K/mm3 RBC 4.10 (3.98-5.22) M/mm3 Hgb 11.7 (11.2-15.7) gm/dl Hct 36.7 (34.1-44.9) % MCV 89.5 (79.4-94.8) fl MCH 28.5 (25.6-32.2) pg MCHC 31.9 L (32.2-35.5) g/dl RDW Std Deviation 41.3 (36.4-46.3) fL Plt Count 428 H (182-369) K/mm3 MPV 9.3 L (9.4-12.3) fl RPR Non-reactive (NONREACTIVE) Blood Type A POSITIVE Gel Antibody Screen Negative Med Orders - Current: Current Medications Acetaminophen (Tylenol) 650 mg PO Q4H PRN PRN Reason: mild pain or fever Last Admin: 10/27/19 22:53 Dose: 650 mg Benzocaine/Menthol (Dermoplast Pain Relief [place]) 0 gm TOP ASDIRECTED PRN PRN Reason: Perineal Comfort Measure Docusate Sodium (Colace) 100 mg PO BID PRN PRN Reason: Constipation Lactated Ringer's (Ringers, Lactated) 1,000 mls @ 150 mls/hr IV ASDIRECTED MG Last Admin: 10/28/19 01:00 Dose: 150 mls/hr Ibuprofen (Motrin) 600 mg PO Q6H PRN PRN Reason: Mild pain or fever Last Admin: 10/28/19 05:00 Dose: 600 mg Witch [place] (Tucks) 1 pad TOP ASDIRECTED PRN PRN Reason: Pain Discontinued Medications Ephedrine Sulfate (Ephedrine Sulfate) 5 mg IVPUSH ASDIRECTED PRN PRN Reason: Hypotension Fentanyl (Sublimaze) 100 mcg EPIDUR Q3H PRN PRN Reason: Pain Last Admin: 10/27/19 17:45 Dose: 100 mcg Fentanyl/Bupivacaine HCl (Fentanyl/Bupivacaine/Ns 2 Mcg-0.125% 100 Ml) 100 ml EPIDUR ASDIRECTED MG Last Admin: 10/27/19 17:45 Dose: 100 ml Lactated Ringer's (Ringers, Lactated) 1,000 mls @ 100 mls/hr IV ASDIRECTED MG Last Admin: 10/27/19 20:14 Dose: 100 mls/hr Oxytocin/Lactated Ringer's (Pitocin In Lr 10 Units/1,000 Ml) 10 unit in 1,000 mls @ 500 mls/hr IV .CONTINUOUS MG Oxytocin/Lactated Ringer's (Pitocin In Lr 10 Units/1,000 Ml) 10 unit in 1,000 mls @ 12 mls/hr IV TITRATE MG; Protocol Last Titration: 10/27/19 22:55 Dose: 250 mls/hr Nalbuphine HCl (Nubain) 10 mg IVPUSH Q2H PRN PRN Reason: Pain Ondansetron HCl (Zofran) 4 mg IVPUSH Q4H PRN PRN Reason: Nausea/Vomiting Last Admin: 10/27/19 19:49 Dose: 4 mg Ondansetron HCl (Zofran) 4 mg IVPUSH ONETIME PRN PRN Reason: Nausea/Vomiting Sodium Chloride (Saline Flush) 10 ml FLUSH ASDIRECTED PRN PRN Reason: Keep Vein Open
[2019-10-28] MEDS: Acetaminophen 325 MG Tab PO PRN ×3 (07:58→21:25)
--- NOTE | 2019-10-28 08:53 | PCM48HPAN ---
Post Anesthesia Note - EVALUATION WITHIN 48HRS OF ANESTHETIC Vital Signs in Normal Range: Yes Patient Participated in Evaluation: Yes Respiratory Function Stable: Yes Airway Patent: Yes Cardiovascular Function Stable: Yes Hydration Status Stable: Yes Pain Control Satisfactory: Yes Nausea and Vomiting Control Satisfactory: Yes Mental Status Recovered: Yes Vital Signs: Last Vital Signs Temp 37.0 C 10/28/19 04:29 Pulse 81 10/28/19 04:29 Resp 15 10/28/19 04:29 BP 114/80 10/28/19 04:29 Pulse Ox 97 10/28/19 04:29 - COMMENTS/OBSERVATIONS Free Text/Narrative:: Patient awake and comfortable at the bedside. Patient denies any c/o headaches at this time. Patient encouraged to remain inactive for the next few days and rest. Patient educated on possibility of blood clot breaking loose if her activity level is too intense. Patient demonstrates understanding and is doing well. Thank you! Vandana BANSAL
[2019-10-28 22:25] VITALS: BP 115/64; PULSE 69
== END 2019-10-28 22:50 | disposition home or self-care (01) | DRG 807 ==
LOC: JD.OBCHECK 15:13 → JD.OB 15:19 → UNDOADMOB 17:00 → JD.OBCHECK 19:19 → OBSVTOIN 21:21 → INTOOBSV 21:21 → JD.OB 21:21 → OBSVTOIN 21:51 → JD.OB 21:51
PROVIDERS: ADMIT Obstetrics & Gynecology; ATTEND Obstetrics & Gynecology
PROC: 10E0XZZ Delivery of Products of Conception, External Approach (ICD-10-PCS; principal; 2019-10-27)
PROC: 10907ZC Drainage of Amniotic Fluid, Therapeutic from Products of Conception, Via Natural or Artificial Opening (ICD-10-PCS; 2019-10-27)
PROC: 3E0R3BZ Introduction of Anesthetic Agent into Spinal Canal, Percutaneous Approach (ICD-10-PCS; 2019-10-27)
DX: O80 Encounter for full-term uncomplicated delivery (principal); Z37.0 Single live birth; Z3A.38 38 weeks gestation of pregnancy; Z88.0 Allergy status to penicillin; Z91.040 Latex allergy status; Z91.018 Allergy to other foods; Z88.8 Allergy status to other drugs, medicaments and biological substances
CPT/HCPCS: 36415; 51702; 59025; 59409; 85027; 86592; 86850; 86900; 86901; A9270-GY; J2405; J2590; J3010; J3490; J7120

== ENCOUNTER 2019-10-30 17:16 | Emergency (ER) | payer MEDICAID ==
[2019-10-30 17:35] VITALS: PULSE 74
--- NOTE | 2019-10-30 17:50 | EDM.PDOC ---
ED HPI GENERAL MEDICAL PROBLEM - General Chief Complaint: Headache Stated Complaint: BLOOD PATCH, HEADACHE, POST LABOR Time Seen by Provider: 10/30/19 17:27 Source of Information: Reports: Patient History Limitations: Reports: No Limitations - History of Present Illness INITIAL COMMENTS - FREE TEXT/NARRATIVE: Patient is a 29-year-old female who presents to the emergency department with complaints of headache since Wednesday. Patient gave via normal vaginal delivery on October 26. She had epidural anesthesia with this. Shortly after the epidural was discontinued, she developed a spinal headache and had a blood patch completed. She states that this intervention relieved her symptoms until she returned home on October 27. She states since that time she has had a significant positional headache. Pain is tolerable when laying flat, however when she stands up she experiences a severe frontal headache at times to the point where she feels like she may pass out. She denies any back pain with a return of symptoms, however stated initially she did have back pain with it. She has been using ibuprofen and caffeine at home with no relief. Headache Pain Score (Numeric/FACES): 6 - Related Data Allergies Allergy/AdvReac Type Severity Reaction Status Date / Time latex Allergy Mild Hives Verified 10/30/19 17:35 miconazole Allergy Mild Hives Verified 10/30/19 17:35 Penicillins Allergy Mild Hives Verified 10/30/19 17:35 strawberry Allergy Mild Hives Verified 10/30/19 17:35 Home Meds: Home Meds Docusate Sodium [Colace] 100 mg PO BID PRN cap 10/28/19 [Rx] Ibuprofen [Motrin] 600 mg PO Q6H PRN tablet 10/28/19 [Rx] Past Medical History HEENT History: Reports: Impaired Vision Other HEENT History: Wears glasses Gastrointestinal History: Reports: GERD, PUD Genitourinary History: Reports: Renal Calculus 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 - Physical Exam Exam: See Below Exam Limited By: No Limitations General Appearance: Alert, WD/WN, No Apparent Distress Head Exam: Atraumatic, Normocephalic Respiratory/Chest: No Respiratory Distress, Lungs Clear, Normal Breath Sounds, No Accessory Muscle Use, Chest Non-Tender Cardiovascular: Normal Peripheral Pulses, Regular Rate, Rhythm, No Edema, No Gallop, No JVD, No Murmur, No Rub Neuro Exam (Abbreviated): Alert, Oriented, CN II-XII Intact, Normal Cognition, Normal Gait, Normal Reflexes, No Motor/Sensory Deficits Psychiatric: Normal Affect, Normal Mood Skin Exam: Warm, Dry, Intact, Normal Color, No Rash Course - Vital Signs Last Recorded V/S: Last Vital Signs Temp 97.9 F 10/30/19 17:29 Pulse 74 10/30/19 17:29 Resp 16 10/30/19 17:29 BP 116/72 10/30/19 21:20 Pulse Ox 98 10/30/19 17:29 - Orders/Labs/Meds Meds: Medications Discontinued Medications Generic Name Dose Route Start Last Admin Trade Name Kunal PRN Reason Stop Dose Admin Lactated Ringer's Confirm 10/30/19 18:16 10/30/19 18:21 Ringers, Lactated Administered 10/30/19 18:17 Not Given Dose 1,000 mls @ as directed .ROUTE .STK-MED ONE Lactated Ringer's 1,000 mls @ 125 mls/hr 10/30/19 18:30 10/30/19 19:23 Ringers, Lactated IV 999 mls/hr ASDIRECTED MG Infusion Sodium Chloride 10 ml 10/30/19 18:18 10/30/19 19:50 Saline Flush FLUSH 10 ml ASDIRECTED PRN Administration Keep Vein Open - Re-Assessments/Exams Free Text/Narrative Re-Assessment/Exam: Patient's history and exam are consistent with that of a spinal headache. I contacted ROLF on-call, Leeann Patiño, to consult and possibly repeat the blood patch. She will review the patient's chart and be in to see the patient. 10/30/19 18:20 ROLF Lakhani, was here to see the patient. She will repeat the blood patch. Patient requested to be able to breast-feed her baby prior to the procedure as she will have to lay flat for 1 to 2 hours after. Patient requested that she go out to the vehicle to feed the baby as she is hesitant to bring him into the ER and expose him to the germs. She states that she has not had any syncopal episodes and feels that she will do okay getting to the car, however, she is aware that it will worsen her headache. We allowed her to breast-feed the and then proceed with the blood patch. 10/30/19 19:15 Blood patch was completed at 1905. Patient will lay flat on her back until 2004. She may roll from side to side but not get up and walk until 2104. After that time we will have her ambulate and if she is doing well she will be discharged home. 10/30/19 20:05 Patient has been lying supine until this time. She states that her headache is feeling much better. We will allow her to start turning from side to side. Departure - Departure Time of Disposition: 19:10 Disposition: Home, Self-Care 01 Condition: Good Clinical Impression: Post-dural puncture headache - Discharge Information *PRESCRIPTION DRUG MONITORING PROGRAM REVIEWED*: No *COPY OF PRESCRIPTION DRUG MONITORING REPORT IN PATIENT SHANNAN: No Instructions: Epidural Blood Patch for Spinal Headache, Care After Referrals: Saskia Olson MD [Primary Care Provider] - Forms: ED Department Discharge Additional Instructions: You were seen in the emergency department today for a headache related to your epidural. A blood patch was completed. You should rest, avoid strenuous activity or lifting for at least the next 3 days to prevent dislodgment of the blood clot. You may continue to use Tylenol and ibuprofen as needed for pain or discomfort. If your symptoms should return or you experience any new or worsening symptoms of concern, please do not hesitate to return to the emergency department. Sepsis Event Note - Evaluation Sepsis Screening Result: No Definite Risk - Focused Exam Date Exam was Performed: 11/03/19 Time Exam was Performed: 22:28
[2019-10-30] MEDS ORDERED: Lactated Ringers 1,000 ML ONE (18:16)
[2019-10-30] MEDS ORDERED: Sodium Chloride 0.9% 10 ML Syringe FLUSH PRN (18:18)
[2019-10-30] MEDS ORDERED: Lactated Ringers 1,000 ML IV SCH (18:30)
--- NOTE | 2019-10-30 19:45 | PCM.SN.2 ---
- Free Text/Narrative Note: Anesthesia Note Procedure: Epidural Blood Patch Time: Start: 1832 Stop: 1904 Called to the ER to evaluate Lupe for a post dural puncture headache. She received and epidural on 10/27/2019 insertion was documented without difficulty and no fluid was noted during placement. She was experiencing a positional headache and received a blood patch on 10/28/2019. She did have relief for several hours and then the headache returned and has been intensifying. Currently she has blurry vision when she sits up, severe headache, stiff neck/ shoulders and back. She has been resting as she is able and drinking Coke and water. She has also tried alternating Tylenol and Motrin. She is agreeable to repeating the epidural blood patch at this time. She understands the risks and would like to proceed. Consent has been obtained. Lupe was assisted into a sitting position, sterile precautions observed throughout the procedure. The site was prepped with 3 Betadine swab sticks and allowed to dry. The transparent drape was place, lidocaine 1% to anesthetize the skin, 17 gauge Tuohy needle was advanced with air to TEMO at 4 cm, negative aspiration of fluid, 20 ml of sterile autologous blood was obtained from her left antecubital vein, blood was injected with ease through the Tuohy needle, Lupe noted pressure but was able to tolerated injection of 20 mls of blood. The Tuohy needle was removed. Lupe was repositioned supine and noted she was "feeling much better". She is able to move her legs bilaterally, denies numbness /tingling to her legs/feet, and denies headache at this time. I have asked for Lupe to remain supine for one hour and minimal side to side turning for the second hour. She is understanding of the time requirements and also will try and rest once she returns home. I have encouraged her to continue to increase her oral intake of fluids and use the Tylenol and Motrin as needed. Lupe Patiño CRNA
[2019-10-30 21:21] VITALS: BP 116/72
== END 2019-10-30 21:21 | disposition home or self-care (01) ==
LOC: JD.ED 17:16
DX: G97.1 Other reaction to spinal and lumbar puncture (principal); Z91.040 Latex allergy status; Z88.8 Allergy status to other drugs, medicaments and biological substances; Z88.0 Allergy status to penicillin; Z91.018 Allergy to other foods
CPT/HCPCS: 62273; 99283; 99284; J7120

== ENCOUNTER 2020-12-26 19:07 | Emergency (ER) | payer MEDICAID ==
[2020-12-26 19:19] VITALS: BP 131/100; PULSE 84
--- NOTE | 2020-12-26 19:38 | EDM.PDOC ---
ED HPI GENERAL MEDICAL PROBLEM - General Chief Complaint: Back Pain or Injury Stated Complaint: POSS KIDNEY STONE SENT BY [facility] Time Seen by Provider: 12/26/20 19:11 Source of Information: Reports: Patient, RN Notes Reviewed History Limitations: Reports: No Limitations - History of Present Illness INITIAL COMMENTS - FREE TEXT/NARRATIVE: Patient is a 30-year-old female who states she had back pain on the left side started yesterday evening and is gotten worse today. At its most intense pain is 5 out of 10 and is achy in nature. She denies any radiation of the pain. She feels pain is more intense when she moves. She has had some hematuria but denies any dysuria or vaginal discharge. She denies any fever chills nausea vomiting or significant diarrhea. He has had similar pain in the past 8 years ago when she did have a kidney stone. Patient was seen at our urgent care and sent to the ED after having a negative pelvic exam negative and work- up but was unable to get a CT scan for kidney stone and therefore sent to us. Duration: Day(s): (Last night.), Colic, Waxing/Waning Location: Reports: Back Quality: Reports: Ache Severity: Moderate Improves with: Reports: None Worsens with: Reports: Movement Associated Symptoms: Reports: No Other Symptoms. Denies: Fever/Chills, Nausea/Vomiting Left Flank Pain Score (Numeric/FACES): 5 - Related Data Allergies Allergy/AdvReac Type Severity Reaction Status Date / Time latex Allergy Severe Hives Verified 12/26/20 19:19 miconazole Allergy Severe Hives Verified 12/26/20 19:19 Penicillins Allergy Severe Hives Verified 12/26/20 19:19 strawberry Allergy Severe Hives Verified 12/26/20 19:19 Home Meds: Home Meds Docusate Sodium [Colace] 100 mg PO BID PRN cap 10/28/19 [Rx] Ibuprofen [Motrin] 600 mg PO Q6H PRN tablet 10/28/19 [Rx] Hydrocodone/Acetaminophen [Hydrocodone-Acetamin 5-325 mg] 1 each PO Q6HR PRN #14 tab 12/26/20 [Rx] Ondansetron [Zofran ODT] 4 mg PO Q6H PRN #7 tab.dis 12/26/20 [Rx] Past Medical History HEENT History: Reports: Impaired Vision Other HEENT History: Wears glasses Gastrointestinal History: Reports: GERD, PUD Genitourinary History: Reports: Renal Calculus 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: - Past Surgical History HEENT Surgical History: Reports: Oral Surgery Other HEENT Surgeries/Procedures: [place] Tooth extraction GI Surgical History: Reports: Colonoscopy, EGD Social & Family History - Family History Family Medical History: No Pertinent Family History - Tobacco Use Tobacco Use Status *Q: Never Tobacco User - Caffeine Use Caffeine Use: Reports: Coffee, Soda - Recreational Drug Use Recreational Drug Use: No - Living Situation & Occupation Living situation: Reports: Single ED ROS GENERAL - Review of Systems Review Of Systems: Comprehensive ROS is negative, except as noted in HPI. GI/Abdominal: Reports: No Symptoms : Reports: Flank Pain, Hematuria, Pain. Denies: Discharge, Dysuria, Frequency, Urgency, Urinary Retention ED EXAM,LOWER BACK PAIN/INJURY - Physical Exam Exam: See Below Exam Limited By: No Limitations General Appearance: Alert, No Apparent Distress Head: Atraumatic Neck: Normal Inspection, Supple Respiratory/Chest: No Respiratory Distress, Lungs Clear, Normal Breath Sounds Cardiovascular: Regular Rate, Rhythm GI/Abdominal: Normal Bowel Sounds, Soft, Non-Tender Back Exam: Normal Inspection, Full Range of Motion, CVA Tenderness (L) Neurological: Alert, Normal Mood/Affect Psychiatric: Normal Affect Skin Exam: Warm, Dry, Normal Color Lymphatic: No Adenopathy Course - Vital Signs Text/Narrative:: Patient's medical record from the clinic shows that she did have some blood in her urine. Patient CT scan done here does show she has a small nonobstructing calculus of the left kidney no ureteral dilatation or ureteral stone is seen. Patient is feeling better at this time she will be given prescription for [place] and Zofran ODT. She will be sent home with a urine strainer a container to collect the stone for follow-up with urologist. She is instructed to return to ER if having fever chills vomiting or worse pain. Last Recorded V/S: Last Vital Signs Temp 98.4 F 12/26/20 19:16 Pulse 84 12/26/20 19:16 Resp 16 12/26/20 19:16 BP 131/100 H 12/26/20 19:16 Pulse Ox - Radiology Interpretation Free Text/Narrative:: See above. Departure - Departure Time of Disposition: 20:33 Disposition: Home, Self-Care 01 Condition: Good Clinical Impression: Renal colic on left side - Discharge Information *COPY OF PRESCRIPTION DRUG MONITORING REPORT IN PATIENT SHANNAN: No Prescriptions: Hydrocodone/Acetaminophen [Hydrocodone-Acetamin 5-325 mg] 1 each PO Q6HR PRN #14 tab PRN Reason: Pain Ondansetron [Zofran ODT] 4 mg PO Q6H PRN #7 tab.dis PRN Reason: Nausea Instructions: Kidney Stones, [id number] Referrals: Radha Martinez PA-C [Primary Care Provider] - Forms: ED Department Discharge Additional Instructions: Ibuprofen with meals as needed. Increase fluid intake keep urine clear for the next 3 weeks. Care Plan Goals: Return to emergency department if symptoms are worse. Follow-up with PCP for urology follow-up. Sepsis Event Note (ED) - Evaluation Sepsis Screening Result: No Definite Risk - Focused Exam Vital Signs: Vital Signs Temp Pulse Resp BP 12/26/20 19:16 98.4 F 84 16 131/100 H
--- NOTE | 2020-12-26 20:22 | CT ---
CT abdomen and pelvis Technique: Multiple axial sections were obtained from above the kidneys inferiorly through the pubic symphysis. Intravenous and oral contrast were not utilized. Study has been performed as a ureteral stone protocol. Comparison: Prior CT abdomen and pelvis study of 02/21/19. Findings: Left kidney shows a small nonobstructing stone within the mid aspect measuring about 2-3 mm. No other abnormal calcifications are seen within the kidneys. No ureteral dilatation or ureteral stone is seen. No bladder calculi are noted. Visualized lung bases show nothing acute. Visualized liver shows no discrete abnormality. Visualized portion of the spleen appears normal. Adrenal glands show no nodule. Pancreas contains no discrete abnormality. Gallbladder contains no calcified gallstones. Abdominal aorta shows no aneurysm. No retroperitoneal adenopathy or mesenteric abnormalities are seen. Fat-containing umbilical hernia is noted. Appendix is seen which is normal in size. No pelvic mass or adenopathy is seen. Bone window settings were reviewed which appear within normal limits for the patient's age. No acute osseous abnormality is appreciated. Impression: 1. Small nonobstructing calculus within the left kidney. No ureteral dilatation or ureteral stone is seen. 2. Nothing acute is appreciated on noncontrast CT study of the abdomen and pelvis. Diagnostic code #2
== END 2020-12-26 20:52 | disposition home or self-care (01) ==
LOC: JD.ED 19:07
DX: N23 Unspecified renal colic (principal); Z91.040 Latex allergy status; Z88.0 Allergy status to penicillin; Z91.018 Allergy to other foods; Z87.442 Personal history of urinary calculi
CPT/HCPCS: 74176; 74176-26; 99283-25

== ENCOUNTER 2021-01-19 18:54 | Emergency (ER) | payer MEDICAID ==
[2021-01-19 20:12] VITALS: BP 133/80; PULSE 95
[2021-01-19] MEDS ORDERED: Acetaminophen/HYDROcodone 325-5 MG Tab PO ONE (20:57)
--- NOTE | 2021-01-19 21:04 | EDM.PDOC ---
ED HPI GENERAL MEDICAL PROBLEM - General Chief Complaint: Flank Pain Stated Complaint: KIDNEY STONE Time Seen by Provider: 01/19/21 20:50 Source of Information: Reports: Patient, RN Notes Reviewed History Limitations: Reports: No Limitations - History of Present Illness INITIAL COMMENTS - FREE TEXT/NARRATIVE: Patient is a 30-year-old female presents to the ER for left flank pain. Patient notes that she has been dealing with a kidney stone, for the better part of a month. Notes that she just had another CT scan performed by Radha Michelle at [facility] [place] this last week , 01/16/2021, and it showed a 2 mm stone within her left kidney. States that she is having pain into her left flank today, she did take some ibuprofen yesterday, but has not taken any sort of pain medication today. Ms. Martinez waits until then as the pain is gone to severe. Was not supposed to be back into the clinic until Wednesday, and the patient will see her as soon as she gets back into clinic. Patient states that she was just not able to not having any nausea/vomiting, or any sort of fevers or chills. Patient states she is still peeing blood tinged urine. She is denying any dysu behzad frequency urgency. Left Flank Pain Score (Numeric/FACES): 8 - Related Data Allergies Allergy/AdvReac Type Severity Reaction Status Date / Time latex Allergy Severe Hives Verified 01/19/21 20:12 miconazole Allergy Severe Hives Verified 01/19/21 20:12 Penicillins Allergy Severe Hives Verified 01/19/21 20:12 strawberry Allergy Severe Hives Verified 01/19/21 20:12 Home Meds: Home Meds Ibuprofen [Motrin] 600 mg PO Q6H PRN tablet 10/28/19 [Rx] Cefdinir [Omnicef] 300 mg PO BID 7 Days #14 cap 01/19/21 [Rx] Hydrocodone/Acetaminophen [HYDROcodone-Acetaminophen 5-325 MG] 1 each PO Q6H PRN #12 tablet 01/19/21 [Rx] Sertraline [Zoloft] 50 mg PO DAILY 01/19/21 [History] medroxyPROGESTERone Acetate [Depo-Provera] 150 mg IM ASDIRECTED 01/19/21 [History] Past Medical History HEENT History: Reports: Impaired Vision Other HEENT History: Wears glasses Gastrointestinal History: Reports: GERD, PUD Genitourinary History: Reports: Renal Calculus 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: - Past Surgical History HEENT Surgical History: Reports: Oral Surgery Other HEENT Surgeries/Procedures: [place] Tooth extraction GI Surgical History: Reports: Colonoscopy, EGD Social & Family History - Family History Family Medical History: No Pertinent Family History - Tobacco Use Tobacco Use Status *Q: Never Tobacco User - Caffeine Use Caffeine Use: Reports: Coffee - Recreational Drug Use Recreational Drug Use: No - Living Situation & Occupation Living situation: Reports: Single ED ROS GENERAL - Review of Systems Review Of Systems: Comprehensive ROS is negative, except as noted in HPI. ED EXAM, RENAL/ - Physical Exam Exam: See Below Exam Limited By: No Limitations General Appearance: Alert, WD/WN, No Apparent Distress Respiratory/Chest: No Respiratory Distress, Lungs Clear, Normal Breath Sounds, No Accessory Muscle Use, Chest Non-Tender Cardiovascular: Normal Peripheral Pulses, Regular Rate, Rhythm, No Edema GI/Abdominal: Normal Bowel Sounds, Soft, Non-Tender, No Distention, No Mass Back Exam: No: CVA Tenderness (L) Extremities: Normal Inspection, Normal Capillary Refill Neurological: Alert, Oriented, Normal Cognition, No Motor/Sensory Deficits Psychiatric: Normal Affect, Normal Mood Skin Exam: Warm, Dry, Intact, Normal Color, No Rash Course - Vital Signs Last Recorded V/S: Last Vital Signs Temp 98.5 F 01/19/21 20:09 Pulse 95 01/19/21 20:09 Resp 16 01/19/21 20:09 BP 133/80 01/19/21 20:09 Pulse Ox 100 01/19/21 20:09 - Orders/Labs/Meds Orders: Active Orders 24 hr Category Date Time Status CULTURE URINE [MREF] Urgent Lab 01/19/21 22:28 Ordered Labs: Laboratory Tests 01/19/21 Range/Units 21:27 Urine Color Yellow (Yellow) Urine Appearance Cloudy H (Clear) Urine pH 6.0 (5.0-8.0) Ur Specific [place] > or = 1.030 (1.005-1.030) Urine Protein Negative (Negative) Urine Glucose (UA) Negative (Negative) Urine Ketones Negative (Negative) Urine Occult Blood 2+ H (Negative) Urine Nitrite Negative (Negative) Urine Bilirubin Negative (Negative) Urine Urobilinogen 0.2 (0.2-1.0) Ur Leukocyte Esterase 1+ H (Negative) Urine RBC 5-10 H (0-5) /hpf Urine WBC 10-20 H (0-5) /hpf Ur Squamous Epith Cells 20-30 H (0-5) /hpf Urine Bacteria Many H (FEW) /hpf Urine Mucus Not seen (FEW) /hpf Meds: Medications Discontinued Medications Generic Name Dose Route Start Last Admin Trade Name Kunal PRN Reason Stop Dose Admin Hydrocodone Bitart/Acetaminophen 2 tab 01/19/21 20:57 01/19/21 21:27 Acetaminophen/Hydrocodone 325-5 Mg Tab PO 01/19/21 20:58 2 tab ONETIME ONE Administration - Re-Assessments/Exams Free Text/Narrative Re-Assessment/Exam: 01/19/21 21:03 Patient presents to the ER for her ongoing left flank pain, for today's purposes we will go ahead and recheck a urinalysis to rule out infection. I do not believe CT is warranted at today's visit, she just had a recent one on . She is to follow-up with Radha Martinez as soon as she gets back from vacation on Wednesday or Wednesday of this week, patient would really rather not have a CT if possible. This is fine with me I will give her some pain medication in the interim, and see if this helps. 01/19/21 22:28 Urinalysis is grossly positive for UTI, culture has been ordered, will go ahead and get the patient started on Omnicef and have her follow-up with Radha Martinez at the next available appointment. Departure - Departure Time of Disposition: 22:28 Disposition: Home, Self-Care 01 Condition: Good Clinical Impression: UTI, Urinary tract infectious disease, Kidney stone - Discharge Information *PRESCRIPTION DRUG MONITORING PROGRAM REVIEWED*: No *COPY OF PRESCRIPTION DRUG MONITORING REPORT IN PATIENT SHANNAN: No Prescriptions: Hydrocodone/Acetaminophen [HYDROcodone-Acetaminophen 5-325 MG] 1 each PO Q6H PRN #12 tablet PRN Reason: Pain Cefdinir [Omnicef] 300 mg PO BID 7 Days #14 cap Instructions: Dietary Guidelines to Help Prevent Kidney Stones, Urinary Tract Infection, Adult, [id number] Referrals: Radha Martinez PA-C [Primary Care Provider] - Forms: ED Department Discharge Additional Instructions: You have been evaluated in the ED for your urinary symptoms. Your urinalysis was consistent with an acute urinary tract infection. Your urine was sent for culture, and you will be notified if you should need a change in your antibiotic. This may take up to 48 hours to result. You may take AZO for urinary pain relief. This is available over the counter, and can be attained at any retail store like [employer] or any pharmacy. Please be aware that this medication will make your urine turn orange. You should only use this medication for a time period not longer than 72 hours. You have been given a prescription for Omnicef (cefdinir), 300 mg 1 tablet 2 times a day for 7 days. Please note that the antibiotics can take up to 48 hours to start working. You were given a prescription for a strong pain medication, hydrocodone/acetaminophen 5/325 mg), please take 1 tab every 6 hours as needed for pain not relieved by Tylenol or ibuprofen alone. Please note this medication does contain Tylenol in it, so do not take more than 4000 mg in a 24- hour time span. These medications can be addictive, so please take as few as possible to achieve adequate pain control. These meds can also be quite constipating, recommend that you increase your oral fluid intake and take a stool softener like MiraLAX while taking these medications. Do not drive while taking this medication. This medication was electronically sent to the [email or web address] located near [facility]. Please increase your oral fluid intake and try to stay adequately hydrated. Please follow-up with your primary care provider, this week at her next available appointment for ER follow-up. Please return to the ED if your symptoms change or worsen. Sepsis Event Note (ED) - Evaluation Sepsis Screening Result: No Definite Risk - Focused Exam Vital Signs: Vital Signs Temp Pulse Resp BP Pulse Ox 01/19/21 20:09 98.5 F 95 16 133/80 100 - My Orders Last 24 Hours: My Active Orders 01/19/21 22:28 CULTURE URINE [MREF] Urgent - Assessment/Plan Last 24 Hours: My Active Orders 01/19/21 22:28 CULTURE URINE [MREF] Urgent
[2021-01-19] MEDS ORDERED: Cefdinir 300 MG Cap PO ONE (22:37)
== END 2021-01-19 22:59 | disposition home or self-care (01) ==
LOC: JD.ED 18:54
DX: N39.0 Urinary tract infection, site not specified (principal); N20.0 Calculus of kidney; Z91.040 Latex allergy status; Z88.0 Allergy status to penicillin; Z88.8 Allergy status to other drugs, medicaments and biological substances; Z91.018 Allergy to other foods
CPT/HCPCS: 81001; 87086; 99284; A9270

== ENCOUNTER 2021-03-09 18:58 | Emergency (ER) | payer MEDICAID ==
[2021-03-09 19:28] VITALS: BP 123/90; PULSE 110
[2021-03-09] MEDS ORDERED: Dexamethasone 10 MG/ML SDV IM ONE (19:50)
[2021-03-09] MEDS ORDERED: HYDROmorphone 0.5 MG/0.5 ML Syringe IM ONE (19:50)
--- NOTE | 2021-03-09 19:56 | EDM.PDOC ---
ED HPI GENERAL MEDICAL PROBLEM - General Chief Complaint: Respiratory Problem Stated Complaint: CONGESTED/BACK PAIN Time Seen by Provider: 03/09/21 19:24 Source of Information: Reports: Patient, RN Notes Reviewed History Limitations: Reports: No Limitations - History of Present Illness INITIAL COMMENTS - FREE TEXT/NARRATIVE: Patient is a 30-year-old female who presents to the ER for the evaluation of her shortness of breath, and back pain. Patient states that she was at her brother's house a few days ago, for roughly 2 hours, and she was notified after that she was there, that he was positive for COVID-19. She states that both her and her son have been ill with [id number] illness. She has had a cough, some shortness of breath. But she also is having some sciatic pain, that has worsened for her. She notes this is in her bilateral legs, and she is having some numbness or tingling into her toes. She has been trying to go to chiropractor for evaluation and management but states this is not helping much. 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 Back Pain Score (Numeric/FACES): 10 - Related Data Allergies Allergy/AdvReac Type Severity Reaction Status Date / Time latex Allergy Intermediate Hives Verified 01/20/21 16:12 miconazole Allergy Intermediate Hives Verified 01/20/21 16:12 Penicillins Allergy Intermediate Hives Verified 01/20/21 16:12 strawberry Allergy Intermediate Hives Verified 01/20/21 16:12 Home Meds: Home Meds Sertraline [Zoloft] 50 mg PO DAILY 01/19/21 [History] medroxyPROGESTERone Acetate [Depo-Provera] 150 mg IM ASDIRECTED 01/19/21 [History] Hydrocodone/Acetaminophen [HYDROcodone-Acetaminophen 5-325 MG] 1 each PO Q6H PRN #12 tablet 03/09/21 [Rx] LORazepam [Ativan] 0.5 mg PO DAILY PRN 03/09/21 [History] predniSONE 20 mg PO ASDIRECTED #15 tab 03/09/21 [Rx] Past Medical History HEENT History: Reports: Impaired Vision Other HEENT History: Wears glasses Gastrointestinal History: Reports: GERD, PUD Genitourinary History: Reports: Renal Calculus [employer]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: Psychiatric History: Reports: Anxiety - Past Surgical History HEENT Surgical History: Reports: Oral Surgery Other HEENT Surgeries/Procedures: [place] Tooth extraction GI Surgical History: Reports: Colonoscopy, EGD Social & Family History - Family History Family Medical History: No Pertinent Family History - Tobacco Use Tobacco Use Status *Q: Never Tobacco User Second Hand Smoke Exposure: No - Caffeine Use Caffeine Use: Reports: Coffee - Alcohol Use Date of Last Drink: 03/09/21 Time of Last Drink: 17:00 - Recreational Drug Use Recreational Drug Use: No - Living Situation & Occupation Living situation: Reports: Single ED ROS GENERAL - Review of Systems Review Of Systems: Comprehensive ROS is negative, except as noted in HPI. ED EXAM, GENERAL - Physical Exam Exam: See Below Exam Limited By: No Limitations (pt is visibly intoxicated but answers questions appropriately) General Appearance: Alert, WD/WN, No Apparent Distress Respiratory/Chest: No Respiratory Distress, Lungs Clear, Normal Breath Sounds, No Accessory Muscle Use, Chest Non-Tender Cardiovascular: Normal Peripheral Pulses, Regular Rate, Rhythm, No Edema Back Exam: Normal Inspection, Full Range of Motion Extremities: Normal Inspection, Normal Range of Motion, No Pedal Edema, Normal Capillary Refill Neurological: Alert, Oriented, Normal Cognition, No Motor/Sensory Deficits Psychiatric: Normal Affect, Normal Mood Skin Exam: Warm, Dry, Intact, Normal Color, No Rash #1 Interpretation EKG Date: 03/09/21 Time: 21:27 Rhythm: Other (sinus tach) Rate (Beats/Min): 118 Pearson: Normal P-Wave: Present QRS: Normal ST-T: Normal QT: Normal EKG Interpretation Comments: No obvious ischemia or acute ST changes noted, reviewed by myself and Dr. Pritchett. Course - Vital Signs Last Recorded V/S: Last Vital Signs Temp 98.0 F 03/09/21 19:27 Pulse 110 H 03/09/21 19:27 Resp 18 03/09/21 19:27 BP 123/90 03/09/21 19:27 Pulse Ox 100 03/09/21 19:27 - Orders/Labs/Meds Orders: Active Orders 24 hr Category Date Time Status Chest 1V Frontal [CR] Stat Exams 03/09/21 19:50 Ordered EKG 12 Lead [EK] Stat Ther 03/09/21 21:20 Ordered Labs: Laboratory Tests 03/09/21 03/09/21 Range/Units 19:20 20:41 Urine Color Yellow (Yellow) Urine Appearance Clear (Clear) Urine pH 6.0 (5.0-8.0) Ur Specific [place] 1.015 (1.005-1.030) Urine Protein Negative (Negative) Urine Glucose (UA) Negative (Negative) Urine Ketones Negative (Negative) Urine Occult Blood 1+ H (Negative) Urine Nitrite Negative (Negative) Urine Bilirubin Negative (Negative) Urine Urobilinogen 0.2 (0.2-1.0) Ur Leukocyte Esterase Negative (Negative) Urine RBC 5-10 H (0-5) /hpf Urine WBC 0-5 (0-5) /hpf Ur Squamous Epith Cells 0-5 (0-5) /hpf Urine Bacteria Few (FEW) /hpf Urine Mucus Few (FEW) /hpf SARS-CoV-2 RNA (TRINY) Negative (NEGATIVE) Meds: Medications Discontinued Medications Generic Name Dose Route Start Last Admin Trade Name Kunal PRN Reason Stop Dose Admin Dexamethasone 10 mg 03/09/21 19:50 03/09/21 20:09 Dexamethasone 10 Mg/Ml Sdv IM 03/09/21 19:51 10 mg ONETIME ONE Administration Hydromorphone HCl 0.5 mg 03/09/21 19:50 03/09/21 20:10 Hydromorphone 0.5 Mg/0.5 Ml Syringe IM 03/09/21 19:51 0.5 mg ONETIME ONE Administration Lorazepam 1 mg 03/09/21 21:23 03/09/21 21:36 Lorazepam 0.5 Mg Tab PO 03/09/21 21:24 1 mg ONETIME ONE Administration - Re-Assessments/Exams Free Text/Narrative Re-Assessment/Exam: 03/09/21 19:58 Patient presents to the ER for the evaluation of [id number] symptoms, and her back pain. I do believe she is suffering from sciatica in nature. We will go ahead and give her IM dexamethasone to start relieving some inflammation of the sciatic nerve, we will go ahead and also get a COVID-19 swab along with a chest x-ray for ongoing management. Patient will get 0.5 mg IM Dilaudid for ongoing pain management as well. Plan is to send the patient home with some oral steroids for the sciatica, plus or minus some pain medication. 03/09/21 20:33 The patient's COVID-19 screen and influenza screen are negative for today's purposes. The nurse did note, that the patient has been back and forth to the bathroom about 4 times since being in the ER, she did collect a urine sample for ongoing management. A UA has been ordered at this time. Since they did have exposure to someone with Covid I will likely have them isolate themselves away for a few more days, until they can get retested in 3 or 4 days. 03/09/21 21:24 I went to reassess the patient, and she is quite anxious, states that she has some chest discomfort, arm tingling and feet tingling. She is tearful, and seems very stressed at this time. I did offer 1 mg Ativan for ongoing management, and nursing staff did place EKG orders for further evaluation. Departure - Departure Time of Disposition: 20:58 Disposition: Home, Self-Care 01 Condition: Good Clinical Impression: Suspected COVID-19 virus infection Sciatica Qualifiers: Laterality: bilateral Qualified Code(s): M54.31 - Sciatica, right side - Discharge Information *PRESCRIPTION DRUG MONITORING PROGRAM REVIEWED*: Yes *COPY OF PRESCRIPTION DRUG MONITORING REPORT IN PATIENT SHANNAN: No Prescriptions: Hydrocodone/Acetaminophen [HYDROcodone-Acetaminophen 5-325 MG] 1 each PO Q6H PRN #12 tablet PRN Reason: Pain predniSONE 20 mg PO ASDIRECTED #15 tab Instructions: Sciatica, [id number], COVID-19: Quarantine vs. Isolation - [facility] (06/13/2020) Referrals: Radha Martinez PA-C [Primary Care Provider] - Forms: ED Department Discharge Additional Instructions: You were evaluated in the ER today for your [id number] symptoms. Your COVID-19 test did come back negative, but sometimes these are false negatives. These Covid screens are only about 60% accurate; and it is common to test negative initially but then test positive a few days later. Because you had such a close contact with someone who was positive for COVID-19, I would recommend that you try to isolate yourself away from others, and get retested for COVID-19 in about 3 or 4 days, there are multiple sites that can do this, there is a drive-through clinic by the [facility], there is a walk-in clinic and our Covid clinic that can help you with these. You were given a prescription for steroids for your sciatic pain, please take as directed. You were given a prescription for a strong pain medication, hydrocodone/sheila taminophen 5/325 mg, please take 1 tab every 6 hours as needed for pain not relieved by Tylenol or ibuprofen alone. Please note this medication does contain Tylenol in it, so do not take more than 4000 mg in a 24-hour time span. These medications can be addictive, so please take as few as possible to achieve adequate pain control. These meds can also be quite constipating, recommend that you increase your oral fluid intake and take a stool softener like MiraLAX while taking these medications. Do not drive while taking this medication. This medication was electronically sent to the [facility] located near [facility]. Continue all other medications as previously prescribed. Do not hesitate to return to the ER at any time if symptoms change or worsen. Sepsis Event Note (ED) - Focused Exam Vital Signs: Vital Signs Temp Pulse Resp BP Pulse Ox 03/09/21 19:27 98.0 F 110 H 18 123/90 100 - My Orders Last 24 Hours: My Active Orders 03/09/21 19:50 Chest 1V Frontal [CR] Stat 03/09/21 21:20 EKG 12 Lead [EK] Stat - Assessment/Plan Last 24 Hours: My Active Orders 03/09/21 19:50 Chest 1V Frontal [CR] Stat 03/09/21 21:20 EKG 12 Lead [EK] Stat
[2021-03-09] MEDS ORDERED: LORazepam 0.5 MG Tab PO ONE (21:23)
--- NOTE | 2021-03-10 07:26 | CR ---
Chest: Portable view of the chest was obtained. Comparison: No prior chest x-ray is available. Heart size and mediastinum are normal. Lungs are clear with no acute parenchymal change. Bony structure shows nothing acute. Minimal scoliosis is noted. Impression: 1. Nothing acute is seen on portable chest x-ray. Diagnostic code #2
== END 2021-03-09 22:57 | disposition home or self-care (01) ==
LOC: JD.ED 18:58
DX: M54.41 Lumbago with sciatica, right side (principal); Z20.822 Contact with and (suspected) exposure to COVID-19; Z88.0 Allergy status to penicillin; Z91.040 Latex allergy status; Z88.8 Allergy status to other drugs, medicaments and biological substances; Z91.018 Allergy to other foods
CPT/HCPCS: 71045; 81001; 87635; 87804; 93005; 96372; 99285; A9270; J1100; J1170; 93010; 99283; U0002

== ENCOUNTER 2021-03-10 11:54 | Emergency (ER) | payer MEDICAID ==
[2021-03-10 13:01] VITALS: BP 147/91; PULSE 109
[2021-03-10] MEDS ORDERED: HYDROmorphone 0.5 MG/0.5 ML Syringe IM ONE ×2 (13:26→14:12)
--- NOTE | 2021-03-10 13:36 | EDM.PDOC ---
ED HPI GENERAL MEDICAL PROBLEM - General Chief Complaint: Back Pain or Injury Stated Complaint: BACK PAIN Time Seen by Provider: 03/10/21 13:07 Source of Information: Reports: Patient History Limitations: Reports: No Limitations - History of Present Illness INITIAL COMMENTS - FREE TEXT/NARRATIVE: 30-year-old female presents the emergency department with complaints of low back pain with numbness noted down the back of her left leg and to her right toes. Per the patient's report she has been doctoring for quite some time with her primary care provider regarding sciatic type issues. She is also been receiving client care coordinator in regards to this. Patient states however that the chiropractic treatment has been exquisitely painful so she states she had taken a break from doing this. She states that a few days ago she was carrying laundry down the stairs and missed a step and ended up stepping down and jarring her back. She states that this made the sciatica act up and has been trying to manage it at home. 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 She denies any bowel or bladder issues associated with the back pain and sciatica. She states she is voiding and moving her bowels per her norm. She states however the pain has come to be so exquisite that she cannot tolerate it anymore. She was seen in the emergency department last evening and discharged home with a prescription for hydrocodone and prednisone. She states she took her first dose of prednisone this morning. She states that she has never had any radiologic exams in regards to her sciatic issues. She states she is otherwise healthy. She denies any fever, chills, nausea, vomiting or diarrhea. She denies any respiratory issues such as cough or shortness of breath. She is able to ambulate without difficulty. Left Leg Pain Score (Numeric/FACES): 8 - Related Data Allergies Allergy/AdvReac Type Severity Reaction Status Date / Time latex Allergy Severe Hives Verified 03/10/21 13:01 miconazole Allergy Severe Hives Verified 03/10/21 13:01 Penicillins Allergy Severe Hives Verified 03/10/21 13:01 strawberry Allergy Severe Hives Verified 03/10/21 13:01 Home Meds: Home Meds Sertraline [Zoloft] 50 mg PO DAILY 01/19/21 [History] medroxyPROGESTERone Acetate [Depo-Provera] 150 mg IM ASDIRECTED 01/19/21 [History] Hydrocodone/Acetaminophen [HYDROcodone-Acetaminophen 5-325 MG] 1 each PO Q6H PRN #12 tablet 03/09/21 [Rx] LORazepam [Ativan] 0.5 mg PO DAILY PRN 03/09/21 [History] predniSONE 20 mg PO ASDIRECTED #15 tab 03/09/21 [Rx] Diclofenac Sodium [Voltaren] 75 mg PO BIDMEALS #16 tab.cr 03/10/21 [Rx] Pantoprazole Sodium [Protonix] 40 mg PO DAILY #10 tablet. 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: Psychiatric History: Reports: Anxiety - Past Surgical History HEENT Surgical History: Reports: Oral Surgery Other HEENT Surgeries/Procedures: [place] Tooth extraction GI Surgical History: Reports: Colonoscopy, EGD Social & Family History - Family History Family Medical History: No Pertinent Family History - Tobacco Use Tobacco Use Status *Q: Never Tobacco User - Caffeine Use Caffeine Use: Reports: None - Recreational Drug Use Recreational Drug Use: No - Living Situation & Occupation Living situation: Reports: Single ED ROS GENERAL - Review of Systems Review Of Systems: Comprehensive ROS is negative, except as noted in HPI. ED EXAM,LOWER BACK PAIN/INJURY - Physical Exam Exam: See Below Exam Limited By: No Limitations General Appearance: Alert, WD/WN, Moderate Distress Ears: Normal External Exam, Hearing Grossly Normal Nose: Normal Inspection Throat/Mouth: Normal Inspection, Normal Lips, Normal Voice, No Airway Compromise Head: Atraumatic Neck: Normal Inspection, Supple Respiratory/Chest: No Respiratory Distress, No Accessory Muscle Use Cardiovascular: Normal Peripheral Pulses, Regular Rate, Rhythm GI/Abdominal: No Distention (Female) Exam: Deferred Rectal (Female) Exam: Deferred Back Exam: Normal Inspection, Muscle Spasm (Lower lumbar area), Paraspinal Tenderness (Lumbar spine), Vertebral Tenderness (Lumbar spine) Extremities: Normal Inspection, Normal Range of Motion, Non-Tender, No Pedal Edema, Normal Capillary Refill Neurological: Alert, Normal Mood/Affect, Normal Gait, No Motor/Sensory Deficits, Oriented x 3 Psychiatric: Normal Affect, Normal Mood Skin Exam: Warm, Dry, Intact, Normal Color, No Rash Lymphatic: No Adenopathy Course - Vital Signs Text/Narrative:: As stated above, patient presents with exacerbation of sciatic type pain after being hit by the door of her food truck last evening. Upon exam she does have tenderness noted to the lower lumbar spine as well as the paraspinal area lateral of the lumbar spine. She states she has numbness and tingling radiating down the back of her left leg as well and her right toes. Physical exam also reveals tenderness to the bilateral buttocks with deep palpation. I have ordered an x-ray of the lumbar spine. We will also give the patient Dilaudid 1/2 mg IM as she does appear to be very uncomfortable. Last Recorded V/S: Last Vital Signs Temp 98.6 F 03/10/21 12:58 Pulse 109 H 03/10/21 12:58 Resp 18 03/10/21 12:58 BP 147/91 H 03/10/21 12:58 Pulse Ox 95 03/10/21 12:58 - Orders/Labs/Meds Meds: Medications Discontinued Medications Generic Name Dose Route Start Last Admin Trade Name Kunal PRN Reason Stop Dose Admin Hydromorphone HCl 0.5 mg 03/10/21 13:26 03/10/21 13:36 Hydromorphone 0.5 Mg/0.5 Ml Syringe IM 03/10/21 13:27 0.5 mg ONETIME ONE Administration Hydromorphone HCl 0.5 mg 03/10/21 14:12 03/10/21 14:29 Hydromorphone 0.5 Mg/0.5 Ml Syringe IM 03/10/21 14:13 0.5 mg ONETIME ONE Administration - Re-Assessments/Exams Free Text/Narrative Re-Assessment/Exam: 03/10/21 14:51 Radiologist impression AP and lateral views of the lumbar spine: 1. Questionable joint space narrowing within the right SI joint. 2. Minimal scoliosis. 3. Two-view lumbar spine study is otherwise unremarkable. Nothing acute is seen. Departure - Departure Time of Disposition: 15:07 Disposition: Home, Self-Care 01 Condition: Good Clinical Impression: Sciatic nerve pain Qualifiers: Laterality: left Qualified Code(s): M54.32 - Sciatica, left side - Discharge Information Prescriptions: Pantoprazole Sodium [Protonix] 40 mg PO DAILY #10 tablet. Diclofenac Sodium [Voltaren] 75 mg PO BIDMEALS #16 tab.cr Instructions: Pain Medicine Instructions, [id number] Referrals: Radha Martinez PA-C [Primary Care Provider] - Forms: ED Department Discharge Additional Instructions: You were seen in the emergency department today with complaints of low back pain as well as numbness and tingling down your left leg and in your right foot. X- ray of the lumbar spine was completed and did not show any acute processes other than some narrowing of the joint space within the sacroiliac joint which is likely causing your sciatica. Treatment for this is steroids and anti- inflammatories. You are already taking the appropriate steroid dose to treat this. I have sent a prescription for an anti-inflammatory medication called Voltaren. You will need to take 1 tab twice daily with meals for the next 8 days. As we discussed while taking these medications you are more prone to stomach ulcers. So I have also sent a prescription for a medication called Protonix to be taken once daily for the next 10 days. You may need to take the narcotic medication for the next couple of days however within about 48 hours you should notice a decrease in the pain associated with the sciatic nerve. After that time, recommend that you switch to Tylenol for any breakthrough pain. DO NOT take Motrin, ibuprofen or Aleve while taking the Voltaren. Should your condition worsen or change, do not hesitate returning to the emergency department. Sepsis Event Note (ED) - Evaluation Sepsis Screening Result: No Definite Risk - Focused Exam Vital Signs: Vital Signs Temp Pulse Resp BP Pulse Ox 03/10/21 12:58 98.6 F 109 H 18 147/91 H 95
--- NOTE | 2021-03-10 14:36 | CR ---
Lumbar spine: AP and lateral views of the lumbar spine were obtained. Comparison: No prior lumbar spine imaging is available. Vertebral body heights and disc spaces are maintained. Pedicles are intact. Minimal scoliosis is noted. Transverse and spinous processes are intact. Slight joint space narrowing is suggested within the right sacroiliac joint. Impression: 1. Questionable joint space narrowing within the right sacroiliac joint. 2. Minimal scoliosis. 3. Two-view lumbar spine study is otherwise unremarkable. Nothing acute is seen. Diagnostic code #2
== END 2021-03-10 15:50 | disposition home or self-care (01) ==
LOC: JD.ED 11:54
DX: M54.32 Sciatica, left side (principal); K21.9 Gastro-esophageal reflux disease without esophagitis; Z88.8 Allergy status to other drugs, medicaments and biological substances; Z88.0 Allergy status to penicillin; Z91.013 Allergy to seafood; Z79.899 Other long term (current) drug therapy; Z91.040 Latex allergy status
CPT/HCPCS: 72100; 96372; 99284; J1170

== ENCOUNTER 2022-06-22 16:25 | Emergency (ER) | payer MEDICAID ==
[2022-06-22 22:55] VITALS: BP 158/91; PULSE 99
[2022-06-22] MEDS ORDERED: Sodium Chloride 0.9% 1,000 ML IV SCH (23:45)
[2022-06-22] MEDS ORDERED: HYDROmorphone 0.5 MG/0.5 ML Syringe IVPUSH ONE (23:46)
[2022-06-22] MEDS ORDERED: Ondansetron 4 MG/2 ML SDV IVPUSH ONE (23:46)
[2022-06-22] MEDS ORDERED: Sodium Chloride 0.9% 10 ML Syringe FLUSH PRN (23:46)
[2022-06-23 00:23] LABS: ESTIMATED GFR 78 mL/min (>60)
[2022-06-23] MEDS ORDERED: cefTRIAXone 1 GM in Sodium Chloride 0.9% 100 ML IV ONE (01:31)
[2022-06-23] MEDS ORDERED: HYDROmorphone 0.5 MG/0.5 ML Syringe IVPUSH ONE (02:03)
== END 2022-06-23 02:48 | disposition home or self-care (01) ==
LOC: JD.ED 16:25
DX: N39.0 Urinary tract infection, site not specified (principal); R31.9 Hematuria, unspecified; K21.9 Gastro-esophageal reflux disease without esophagitis; Z79.899 Other long term (current) drug therapy; Z91.040 Latex allergy status; Z88.8 Allergy status to other drugs, medicaments and biological substances; Z88.0 Allergy status to penicillin; Z91.018 Allergy to other foods; Z88.5 Allergy status to narcotic agent
CPT/HCPCS: 36415; 80053; 81001; 85025; 86140; 87086; 96361; 96365; 96375; 96376; 99283-25; J0696; J1170; J2405; J3490; J7030

== ENCOUNTER 2023-03-09 08:34 | Day surgery (SDC) | payer MEDICAID ==
[2023-03-09] MEDS: Lactated Ringers 1,000 ML IV SCH ×3 (08:15→14:45)
[~2023-03-09 08:34] MED LIST changes: -Bupivacaine 0.25% 10 ML SDV ONE; +Bupivacaine 0.25%/EPINEPHrine 1:200,000 30 ML SDV ONE; +Bupivacaine 0.5% 30 ML SDV ONE; +Lidocaine 1% 5 ML VIAL ONE; +Midazolam 1 MG/ML 2 ML SDV ONE; +Ondansetron 4 MG/2 ML SDV ONE; +Propofol 200 MG/20 ML SDV ONE; +Rocuronium 50 MG/5 ML Vial ONE; +Scopolamine 1.5 MG Transdermal Patch TRDERM SCH; +Sodium Chloride 0.9% 10 ML Syringe FLUSH PRN; +Sodium Chloride 0.9% 10 ML Syringe FLUSH SCH; +fentaNYL 250 MCG/5 ML SDV ONE
[2023-03-09 09:02] LABS: ANION GAP 15.9 (5-15); BLOOD UREA NITROGEN,BUN 11 mg/dL (7-18); BUN/CREATININE RATIO 12.2 (14-18); CALCIUM 9.1 mg/dL (8.5-10.1); CARBON DIOXIDE,CO2 23 mEq/L (21-32); CHLORIDE,CL 104 mEq/L (98-107); CREATININE 0.9 mg/dL (0.55-1.02); ESTIMATED GFR 88 mL/min (>60); GLUCOSE RANDOM 93 mg/dL (70-99); POTASSIUM,K 3.9 mEq/L (3.5-5.1); SODIUM,NA 139 mEq/L (136-145)
[2023-03-09 09:36] LABS: HEMATOCRIT 43.5 % (37.0-47.0); HEMOGLOBIN 14.8 gm/dl (12.0-16.0); MEAN CORPUSCULAR HEMOGLOBIN 30.6 pg (28.0-32.0); MEAN CORPUSCULAR VOLUME 90.1 fl (83.0-99.0); MEAN PLATELET VOLUME 8.7 fl (9.4-12.3); PLATELET COUNT,PLT 328 K/mm3 (150-400); RED BLOOD CELL COUNT 4.83 M/mm3 (4.10-5.30); WHITE BLOOD CELL COUNT,WBC 7.25 K/mm3 (3.9-11.3)
[2023-03-09 09:37] LABS: BASOPHILS PERCENT AUTO 0.6 % (0.0-1.0); EOSINOPHILS ABSOLUTE AUTO 0.3 K/mm3 (0.0-0.4); EOSINOPHILS PERCENT AUTO 3.6 % (0.0-6.0); IMMATURE GRAN ABSOLUTE AUTO 0.02 K/mm3 (0.00-0.05); IMMATURE GRAN PERCENT AUTO 0.3 % (0.0-0.4); LYMPHOCYTES PERCENT AUTO 27.6 % (24.0-44.0); MONOCYTES ABSOLUTE AUTO 0.4 K/mm3 (0.0-0.8); MONOCYTES PERCENT AUTO 5.9 % (0.0-8.0); NEUTROPHILS ABSOLUTE AUTO 4.5 K/mm3 (1.8-7.7)
[2023-03-09] MEDS ORDERED: ceFAZolin 2 GM Vial ONE (11:45)
[2023-03-09] MEDS ORDERED: Dexamethasone 4 MG/ML 5 ML MDV ONE (11:56)
[2023-03-09] MEDS ORDERED: Ketamine 500 mg/10 ML MDV ONE (12:02)
[2023-03-09] MEDS ORDERED: HYDROmorphone 0.5 MG/0.5 ML Syringe ONE ×2 (12:08→13:03)
[2023-03-09] MEDS ORDERED: Lactated Ringers 1,000 ML ONE (12:15)
[2023-03-09] MEDS ORDERED: Ondansetron 4 MG/2 ML SDV IVPUSH PRN (12:19)
[2023-03-09] MEDS ORDERED: Neostigmine Methylsulfate 10 MG/10 ML MDV ONE (12:27)
[2023-03-09] MEDS ORDERED: Ketorolac 30 MG/ML SDV ONE (13:03)
[2023-03-09] MEDS ORDERED: Ondansetron 4 MG/2 ML SDV ONE (13:27)
[2023-03-09] MEDS: fentaNYL 100 MCG/2 ML SDV IVPUSH PRN ×2 (13:44→14:21)
[2023-03-09] MEDS: HYDROmorphone 0.5 MG/0.5 ML Syringe IVPUSH PRN ×2 (13:47→14:23)
[2023-03-09] MEDS ORDERED: diphenhydrAMINE 50 MG/ML SDV IVPUSH PRN (13:57)
[2023-03-09] MEDS ORDERED: Acetaminophen/oxyCODONE 325-5 MG Tab PO PRN (14:10)
[2023-03-09 16:56] VITALS: PULSE 81
[2023-03-09 16:57] VITALS: BP 109/57
== END 2023-03-09 16:45 | disposition home or self-care (01) ==
LOC: JD.SDS 08:34
PROVIDERS: ATTEND Obstetrics & Gynecology
DX: N94.89 Other specified conditions associated with female genital organs and menstrual cycle (principal); F41.9 Anxiety disorder, unspecified; Z79.899 Other long term (current) drug therapy; Z91.040 Latex allergy status; Z88.0 Allergy status to penicillin; Z88.5 Allergy status to narcotic agent; Z91.018 Allergy to other foods
CPT/HCPCS: 36415; 58552; 80048; 81025; 85025; 86850; 86900; 86901; A9270; J0690; J1100; J1170; J1200; J1885; J2250; J2405; J2704; J2710; J3010; J3490; J7120; 00940

== ENCOUNTER 2025-05-17 08:01 | Emergency (ER) | payer MEDICAID ==
[2025-05-17] MEDS ORDERED: Naloxone 0.4 MG/ML SDV IVPUSH PRN ×2 (08:42→10:47)
[2025-05-17 08:55] LABS: BASOPHILS ABSOLUTE AUTO 0.0 K/mm3 (0.0-0.2); BASOPHILS PERCENT AUTO 0.8 % (0.0-1.0); EOSINOPHILS ABSOLUTE AUTO 0.3 K/mm3 (0.0-0.4); EOSINOPHILS PERCENT AUTO 5.4 % (0.0-6.0); IMMATURE GRAN ABSOLUTE AUTO 0.01 K/mm3 (0.00-0.05); IMMATURE GRAN PERCENT AUTO 0.2 % (0.0-0.4); LYMPHOCYTES ABSOLUTE AUTO 1.7 K/mm3 (1.0-4.8); LYMPHOCYTES PERCENT AUTO 34.5 % (24.0-44.0); MEAN PLATELET VOLUME 8.9 fl (9.4-12.3); MONOCYTES ABSOLUTE AUTO 0.3 K/mm3 (0.0-0.8); MONOCYTES PERCENT AUTO 7.1 % (0.0-8.0); NEUTROPHILS ABSOLUTE AUTO 2.5 K/mm3 (1.8-7.7); NEUTROPHILS PERCENT AUTO 52.0 % (41.0-71.0); NRBC ABSOLUTE 0.00 (0.00-0.02); NRBC PERCENT 0.0 % (0.0-0.2); PLATELET COUNT,PLT 305 K/mm3 (150-400); RED BLOOD CELL COUNT 4.47 M/mm3 (4.10-5.30); WHITE BLOOD CELL COUNT,WBC 4.81 K/mm3 (3.9-11.3)
[2025-05-17] MEDS: Ketorolac 30 MG/ML SDV IVPUSH ONE (08:56)
[2025-05-17] MEDS: Sodium Chloride 0.9% 10 ML Syringe FLUSH PRN ×2 (08:56→11:55)
[2025-05-17 09:16] LABS: A/G RATIO 1.2 (1-2); ALANINE AMINOTRANSFERASE,ALT 18.0 U/L (14-59); ASPARTATE AMNIOTRANSFERASE,AST 10.0 U/L (15-37); BILIRUBIN TOTAL 0.4 mg/dL (0.2-1.0); BLOOD UREA NITROGEN,BUN 9.0 mg/dL (7-18); CARBON DIOXIDE,CO2 28.0 mEq/L (21-32); CHLORIDE,CL 105.0 mEq/L (98-107); CREATININE 0.8 mg/dL (0.55-1.02); EST CRCL DRUG DOSING (CG) 86.37 mL/min; ESTIMATED GFR 100.0 mL/min (>60); GLUCOSE RANDOM 87.0 mg/dL (70-99); POTASSIUM,K 4.2 mEq/L (3.5-5.1); PROTEIN TOTAL,TP 7.1 g/dl (6.4-8.2); SODIUM,NA 141.0 mEq/L (136-145)
[2025-05-17 09:21] LABS: LACTIC ACID 0.6 mmol/L (0.4-2.0)
[2025-05-17] MEDS ORDERED: Iopamidol 755 Mg/ML 100 ML Bottle IVPUSH ONE (11:37)
[2025-05-17 19:14] VITALS: BP 106/64; PULSE 85
== END 2025-05-17 19:05 | disposition home or self-care (01) ==
LOC: JD.ED 08:01
DX: I87.1 Compression of vein (principal); I80.9 Phlebitis and thrombophlebitis of unspecified site; R10.32 Left lower quadrant pain; Z79.01 Long term (current) use of anticoagulants; Z79.82 Long term (current) use of aspirin; Z91.040 Latex allergy status; Z88.0 Allergy status to penicillin; Z91.018 Allergy to other foods; Z88.8 Allergy status to other drugs, medicaments and biological substances; Z88.5 Allergy status to narcotic agent
CPT/HCPCS: 36415; 75635; 80053; 83605; 85025; 93926; 93971; 96374; 96375; 96376; 99284; J2270; J1171